=== PATIENT | female | born 1965 | race Caucasian/White ===

== ENCOUNTER 2022-12-26 09:50 | Outpatient (CLI) | payer OTHER, SELFPAY | END 2022-12-26 09:51 | disposition home or self-care (01) | PROVIDERS: PCP Family Medicine; Visit Provider Family Medicine | DX: Z00.00 Encounter for general adult medical examination without abnormal findings (principal); R53.83 Other fatigue; E55.9 Vitamin D deficiency, unspecified | CPT/HCPCS: 80048; 80061; 80076; 82306; 82728; 84443; 85025 ==

== ENCOUNTER 2023-01-04 16:17 | Outpatient (RCR) | payer OTHER, SELFPAY | END 2023-01-22 10:27 | disposition home or self-care (01) | PROVIDERS: PCP Family Medicine; Visit Provider Physician Assistant | DX: M17.12 Unilateral primary osteoarthritis, left knee (principal); Z96.652 Presence of left artificial knee joint; M25.562 Pain in left knee; M25.662 Stiffness of left knee, not elsewhere classified; Z51.89 Encounter for other specified aftercare | CPT/HCPCS: 97110; 97162 ==

== ENCOUNTER 2023-01-23 08:19 | Day surgery (SDC) | payer OTHER, SELFPAY ==
[2023-01-23] VITALS (24 sets, daily range): BP systolic 96–175; BP diastolic 67–111; PULSE 57–95; RESP 16–18; TEMP 35.2–36.9; O2SAT 94–100; BMI 48.9
[2023-01-23] MEDS: CELECOXIB 200 MG CAPSULE PO (08:40)
[2023-01-23] MEDS: OXYCODONE (CR) 10 MG TAB.ER.12H PO (08:40)
[2023-01-23] MEDS: LACTATED RINGERS 1000 ML 1,000 ML 100 ML IV ×2 (08:50→11:25)
[2023-01-23] MEDS: SODIUM CHLORIDE 0.9 % (FLUSH) 10 ML SYRINGE IVF (08:50)
[2023-01-23] MEDS: MIDAZOLAM HCL 1 MG/ML inj IVP (09:12)
[2023-01-23] MEDS: fentaNYL 100 MCG/2 ML inj IVP (09:12)
--- NOTE | 2023-01-23 09:22 | SUR.PREOP ---
TIME?OUT:?9310 PT/Dimitri TADEO RN/Willian HARRIS MDA?VERIFICATION?OF?SURGICAL?SITE,?PROCEDURE,?AND?CONSENT OBTAINED?PRIOR?TO?INVASIVE?PROCEDURE.
--- NOTE | 2023-01-23 09:30 | W.ANESCHARGE ---
Anesthesia Charges Start Date/Time Anesthesia Start Date: 01/23/23 Anesthesia Start Time: 09:29 Stop Date/Time Anesthesia Stop Date: 01/23/23 Anesthesia Stop Time: 13:12
--- NOTE | 2023-01-23 09:30 | W.PM.NB ---
Nerve Block Nerve Block Time Seen by Provider: 09:12 Date Seen: 01/23/23 Type of block requested by surgeon for post-operative analgesia: adductor canal Side: left Time out performed: Yes Verification of patient name: Yes Verification of date of : Yes Site marking: site marked Name of person performing procedure: Sree Continuous monitoring Was continuous monitoring of O2 sat, B/P, electronic device monitor, recorded every 15 minutes?: Yes Procedure Checklist: sterile prep, needles and gloves Ultrasound guided. Images saved: Yes Medications given in 5ml increments after negative aspiration: Ropivicaine %: 0.5 mL: 20 Needle gauge: 20 Decadron (mg): 10 Precedex (mcg): 25 Patient tolerated procedure well: Yes Additional comments: Needle noted adjacent to nerve Block Charges Block Charge (with Pro Fee): Femoral Nerve Use of Ultrasound Machine for Block: Yes- US Guidance/pain block
--- NOTE | 2023-01-23 09:30 | W.PM.NB ---
Nerve Block Nerve Block Time Seen by Provider: 09:12 Date Seen: 01/23/23 Type of block requested by surgeon for post-operative analgesia: geniculars Side: left Time out performed: Yes Verification of patient name: Yes Verification of date of : Yes Site marking: site marked Name of person performing procedure: Sree Continuous monitoring Was continuous monitoring of O2 sat, B/P, database security administrator, recorded every 15 minutes?: Yes Procedure Checklist: sterile prep, needles and gloves Medications given in 5ml increments after negative aspiration: Ropivicaine %: 0.5 mL: 9 Needle gauge: 25 Patient tolerated procedure well: Yes Block Charges Block Charge (with Pro Fee): Genicular Nerve Block Use of Ultrasound Machine for Block: No
[2023-01-23] MEDS: CEFAZOLIN 2 GM INJ IVP (09:50)
[2023-01-23] MEDS: TRANEXAMIC ACID 100 MG/ML INJ 1000 MG IV (09:55)
--- NOTE | 2023-01-23 12:18 | CRLHL7_ITS ---
For Patients: As a result of the Cures Act, medical imaging exams and procedure reports are released immediately into your electronic medical record. You may view this report before your referring provider. If you have questions, please contact your health care provider. Indication: POSTOP TKA Technique: Two views left knee Findings/Impression: Hardware from a long-stemmed left total knee arthroplasty is in satisfactory position. Bone alignment is normal. No sign of acute fracture. Postop changes are within normal limits. Dictated by Yury Pastrana MD @ 01/23/2023 1:33:30 PM (Electronically Signed)
--- NOTE | 2023-01-23 12:20 | PM.ORPRC ---
Procedure Note Date of procedure: 01/23/23 Procedure: PREOPERATIVE DIAGNOSIS: End-stage (grade 4) Left knee osteoarthritis POSTOPERATIVE DIAGNOSIS: End-stage (grade 4) Left knee osteoarthritis NAME OF OPERATION: Left total knee arthroplasty SURGEON: Bonilla Morales MD SENIOR ENVIRONMENTAL TECHNICIAN: Ana Varner PA-C, NAYELI Candelario ANESTHESIA: Spinal ESTIMATED BLOOD LOSS: 0 mL COMPLICATIONS: None SPECIMENS: None DRAINS: None PREOPERATIVE ANTIBIOTICS: Ancef 3 grams, antibiotic impregnated cement IMPLANTS: 1. J&J Attune revision CRS # 7 posterior stabilized femur, 14 mm x 80 mm cemented stem 2. #5 rotating platform tibia, 29 mm sleeve, 14 mm x 60 mm ingrowth stem 3. # 7 posterior stabilized, 12 mm rotating platform polyethylene 4. 38 patella INDICATIONS: The patient is a 57-year-old who complains of severe, unrelenting bilateral knee pain left greater than right secondary to end-stage tricompartmental osteoarthritis. She has exhausted non operative treatment. Total knee arthroplasty was offered. The risks, benefits and expected outcomes were discussed in detail. These included but were not limited to: Infection, bleeding, injury to blood vessel or nerve, venous thromboembolism. All questions were answered to their satisfaction. She understands she is higher risk for postoperative complication given her high BMI. Use of an assistant to the president was necessary throughout the case for patient positioning and safety, soft tissue retraction, and closure. A modifier 22 should be added to this case. The patient's weight of 125 kg with a BMI of 49 kg/meter squared made exposure difficult. Additionally, given the severity of the disease and marked amount of stiffness exposure was even more difficult. Given the amount of bone loss and deformity, revision components were used to obtain good fixation and stability. These factors more than doubled the time typically required to complete the case. PROCEDURE: Spinal anesthesia was administered. The patient was placed supine on the operating table. The assistant to the president made sure the patient was positioned appropriately. The lower extremity was prepped and draped in the usual sterile fashion. The limb was exsanguinated with the Jose bandage. The pneumatic tourniquet was inflated to 300 mmHg. A standard anterior incision was utilized with the knee in flexion. Subcutaneous dissection was sharply taken to the extensor mechanism. Full-thickness medial and lateral flaps were elevated. The assistant to the president retracted the soft tissues and protected them throughout the case. A standard medial parapatellar approach was made. The patella was everted. Because of the above factors, exposure was difficult. Marginal osteophytes were debrided with the rongeur. The drill was used to penetrate the femoral canal. The canal was aspirated and irrigated with pulse lavage. The intramedullary femoral guide was placed for a 5 degree valgus cut, removing 12 mm off the distal femur. The saw was used to make the cut. Whitesides line and the trans epicondylar axis were marked. The femoral sizing guide was placed. Pins were placed for posterior referencing. The 4 in 1 cutting guide was pinned onto the distal femur. The anterior, posterior and chamfer cuts were made. The trial femur was placed. This was an excellent fit. The box cuts were made. The drills were used for the femoral stem. The trial stemmed femoral component was placed and was an excellent fit. Attention was then turned to the tibia. The extramedullary tibial guide was placed for a neutral varus valgus cut with 5? of posterior slope removing 1 mm off the most deficient medial tibial surface. This was marked in the slot. However, the cut was made with the saw on top of the jig, adding back some bone. The canal was entered with the canal finer. The tibia was reamed by hand to 15 mm with excellent cortical chatter. Marginal osteophytes were resected from the tibia. The 29 mm broach for the sleeve was placed. This had excellent purchase. We freshened the proximal tibial cut with the oscillating saw on top of the broach. The # 5 Tray appears to be the best fit. The trial stemmed tibia was placed. This was a nice fit. Rotation was set. The trial femur and trial polyethylene were placed. The knee was nicely balanced in both flexion and extension. These components were removed and taken to the back table to reproduce with the real implants. Attention was then turned to the patella. The lobster claw a resection guide set to 7.5 mm was used. The saw was used make the cut. Patellar bone quality is quite poor. The drill guide was placed and the lugs were drilled. The trial was placed and was an excellent fit. Cancellous surfaces were irrigated with pulse lavage, then thoroughly dried, by the assistant to the president. Components were assembled on the back table. We cemented the tibial component, then the femoral component. We placed the 10 mm trial polyethylene onto the tibial tray. The knee was brought into full extension. We then cemented the patellar component. Excessive cement was removed. The cement was allowed to harden. We trialed the 12 mm poly and this shows the knee to be nicely balanced in both flexion and extension, stable to varus/valgus stress. Therefore, we placed the 12 mm poly on the tibia and reduced it under the femur. The knee was taken through a range of motion and was found to be nicely balanced in both flexion and extension. The patella tracks centrally. The assistant to the president did a three minute dilute Betadine solution soak. The assistant to the president irrigated the wound with 3 liters of normal saline via pulse lavage. The assistant to the president reapproximated the extensor mechanism with #1 Vicryl in an interrupted [id number] fashion. The assistant to the president then ran the extensor mechanism with a #1 PDO Stratafix. The assistant to the president closed the subcutaneous tissues with a 3-0 Stratafix and the skin with a running 3-0 Stratafix in a subcuticular fashion. Glue was used to seal the skin. The assistant to the president placed a dry dressing, LINA stocking, and Polar Care. Sponge and needle counts were correct x2. The patient tolerated the procedure well. There were no apparent complications. They were carefully transferred to the hospital bed and taken to the postanesthesia care unit in satisfactory condition. PLAN: The patient will be mobilized with physical therapy. Aspirin will be used for DVT prophylaxis. They will be discharged to home once medically appropriate.
--- NOTE | 2023-01-23 13:17 | W.ANESCHARGE ---
Anesthesia Charges Start Date/Time Anesthesia Start Date: 01/23/23 Anesthesia Start Time: 09:29 Stop Date/Time Anesthesia Stop Date: 01/23/23 Anesthesia Stop Time: 13:12
[2023-01-23] MEDS: HYDROmorphone 0.5 mg/0.5 ml inj IVP ×2 (15:27→17:12)
[2023-01-23] MEDS: OXYCODONE 5 MG TABLET PO ×4 (15:27→22:59)
--- NOTE | 2023-01-23 16:29 | P.IMCN_ITS ---
Date of Consult Consult date: 01/23/23 Requesting Physician: Orthopedics Primary Care Provider: Yury Post MD Consult Narrative Reason for consult: Management of medical problems following surgery Narrative: Izzy Rocha is a 57 year old female admitted for left total knee arthroplasty. Procedures performed today by Dr. Morales. No operative complications. Postoperatively she is doing well. Pain is manageable. She has had no nausea. Patient reports in addition to her knee pain she also has chronic low back pain. She is also anticipating having her other knee replaced after she has recovered from the surgery No previous problems with anesthesia, bleeding or clotting. Review of Systems Narrative: No recent illness or injury. Patient lives in [place] with her and his son. She lives at home with no steps. She reports no problems with anesthesia, bleeding or clotting. [facility] Medical History (Updated 01/23/23 @ 16:33 by Devon Costello MD) Severe obesity (BMI >= 40) ?E66.01 - Morbid (severe) obesity due to excess calories (ICD-10) Chronic neck and back pain ?M54.2 - Cervicalgia (ICD-10) ?M54.9 - Dorsalgia, unspecified (ICD-10) ?G89.29 - Other chronic pain (ICD-10) Bilateral carpal tunnel syndrome ?G56.03 - Carpal tunnel syndrome, bilateral upper limbs (ICD-10) Bilateral primary osteoarthritis of knee ?M17.0 - Bilateral primary osteoarthritis of knee (ICD-10) Chronic pain syndrome ?G89.4 - Chronic pain syndrome (ICD-10) Surgical History History of lumpectomy of right breast ?Z98.890 - Other specified postprocedural states (ICD-10) Family History Father Diabetes AGUILA (nonalcoholic steatohepatitis) Mother High blood pressure Social History Narrative: , correction nurse, non-smoker Smoking Status: Former smoker Do you use any of these nicotine containing products: None How often do you have a drink containing alcohol: 2-3 times a week Alcohol type: hard liquor How many standard drinks containing alcohol do you have on a typical day: 5 or 6 How often do you have six or more drinks on one occasion: Weekly AUDIT-C Alcohol total score: 8 Non-prescribed substance use: denies use Caffeine: Yes (Celsius, one a day) Little interest or pleasure in doing things: more than half the days Feeling down, depressed, or hopeless: more than half the days Meds Home Medications and Allergies Home Medications Medication Instructions Recorded Confirmed Type acetaminophen 500 mg capsule 1,000 mg PO Q6H PRN 12/26/22 01/23/23 History cholecalciferol (vitamin D3) 25 25 mcg PO BID 12/26/22 01/23/23 History mcg (1,000 unit) capsule diphenhydramine HCl 25 mg capsule 50 mg PO QHS PRN 12/26/22 01/23/23 History (Benadryl) Allergies Allergy/AdvReac Type Severity Reaction Status Date / Time No Known Drug Allergies Allergy Verified 01/09/23 09:26 Exam Narrative: Exam Narrative: She is alert and appears in no distress. She is oriented to her circumstances and gives her own history. Oropharynx is normal. Small airway. Respirations are clear to auscultation. Cardiovascular: S1, S2, regular rate and rhythm. No murmur gallop or rub. Abdomen: Bowel sounds active. Abdomen is soft without tenderness or mass. Extremities with intact pulses and sensation. Intact stre ngth in both feet and ankles. No edema. No rash Const: Vital Signs, click to edit/add: Vital Signs - 24 hr 01/23/23 09:03 01/23/23 09:10 01/23/23 09:15 Temperature 97.8 F Pulse Rate 71 68 72 Respiratory Rate 18 18 18 Blood Pressure 129/104 H 116/82 129/90 H Pulse Oximetry 95 98 96 Oxygen Delivery Me thod Room Air Nasal Cannula Nasal Cannula Oxygen Flow Rate 2 2 01/23/23 13:11 01/23/23 13:12 01/23/23 13:15 Temperature Pulse Rate 64 61 65 Respiratory Rate Blood Pressure 102/67 Pulse Oximetry 99 99 100 Oxygen Delivery Me thod Room Air Oxygen Flow Rate 01/23/23 13:17 01/23/23 13:22 01/23/23 13:27 Temperature Pulse Rate 65 64 63 Respiratory Rate Blood Pressure 96/71 110/91 H 113/74 Pulse Oximetry 96 95 96 Oxygen Delivery Me thod Room Air Oxygen Flow Rate 01/23/23 13:30 01/23/23 13:34 01/23/23 13:42 Temperature Pulse Rate 63 60 60 Respiratory Rate 18 18 Blood Pressure 122/85 124/81 Pulse Oximetry 97 97 98 Oxygen Delivery Me thod Room Air Room Air Oxygen Flow Rate 01/23/23 13:46 Temperature Pulse Rate 57 L Respiratory Rate 18 Blood Pressure 133/87 Pulse Oximetry 98 Oxygen Delivery Me thod Room Air Oxygen Flow Rate Documenting provider has reviewed patient's vital signs: yes Assessment and Plan Assessment and plan (1) Status post left knee replacement: Status: Acute (2) Chronic neck and back pain: Status: Acute (3) Bilateral primary osteoarthritis of knee: Problem comment: Severe end-stage bilateral Status: Acute (4) Chronic pain syndrome: Status: Acute (5) Severe obesity (BMI >= 40): Status: Acute Plan Anticipate routine pain management and routine therapy. Patient will likely have ongoing pain due to her other knee and her low back problems. On that basis I am going to continue her Naprosyn unless she develops complications with Naprosyn and aspirin. Total time spent is 40 minutes, 25 minutes in coordination of care discussing with patient and other providers ongoing evaluation management of postoperative care.
[2023-01-23] MEDS: LACTATED RINGERS 1000 ML 1,000 ML 75 ML IV (17:59)
--- NOTE | 2023-01-23 18:49 | PC.NURSE ---
Pt A&O. A1 w/ walker and gait belt. Denies n/v. Tolerating regular diet. After PT pt rating pain 13/10, PRN Dilaudid and Oxycodone given with minimal relief at first, after another dose of each pt rating pain 5/10. Hypertensive, notified, no change. Dressing to left hip c/d/i.
[2023-01-23] MEDS: ACETAMINOPHEN 500 MG TABLET 1000 MG PO (20:01)
[2023-01-23] MEDS: SENNOSIDES 1 TAB TABLET 2 TAB PO (21:16)
[2023-01-23] MEDS: PREGABALIN 75 MG CAPSULE 150 MG PO (21:17)
[2023-01-23] MEDS: ASPIRIN 81 MG TABLET EC PO (21:17)
[2023-01-24] MEDS: OXYCODONE 5 MG TABLET PO ×4 (01:44→10:07)
[2023-01-24] MEDS: ACETAMINOPHEN 500 MG TABLET 1000 MG PO ×2 (02:20→07:48)
[2023-01-24 03:00] VITALS: BP 152/90; PULSE 76; RESP 16; TEMP 36.7; O2SAT 96
--- NOTE | 2023-01-24 06:06 | PC.NURSE ---
End of shift note: Pt alert and oriented, pleasant and conversational. Pt c/o severe 9-10/10 pain intermit throughout shift, requesting PRN pain medication. PRN Oxycodone 10mg admin, pt stated pain improved to a 5-6/10 after admin but pain relief not lasting per pt. Painful with movement, tearful intermit during?shift. Pt also received her scheduled Lyrica. Cryo cuff in place to L knee, dressing to knee CDI. CMS intact. Up w/ SBA and walker, moving very well, up to bathroom and amb in hallway. Denies nausea. Con?t pulse ox in place, vitals stable, on RA, BP continued to be slightly elevated diastolic ranging 90-low 100s, improved throughout shift. 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 Tolerating diet, drinking adequate fluids, voiding w/o issue. Received 2nd of 3 Ancef doses, IV saline locked. Has call light within reach and uses appropriately.??
[2023-01-24 07:07] LABS: Basophils Percent Auto 0.1 % (0.0-3.0); Hematocrit 36.6 % (33.0-51.0); Hemoglobin* 12.3 gm/dL (12.0-16.0); Immature Granulocytes Pct Auto 0.9 %; Lymphocytes Percent Auto 10.6 % (20-44); Mean Corpuscular HGB Conc 34 gm/dL (32-36); Mean Corpuscular Hemoglobin 31 pg (26-34); Mean Corpuscular Volume 93 fL (80-100); Monocytes Percent Auto 8.7 % (0.0-11.0); Neutrophils Percent Auto 79.7 % (42.0-72.0); Platelet Count* 247 K/uL (140-440); RDW Coefficient of Variation % 12.1 % (11.5-15.5); Red Blood Count 3.94 m/uL (4.00-5.20); White Blood Count* 17.17 K/uL (4.50-11.00)
[2023-01-24 07:08] LABS: Slide Review Reflex No
[2023-01-24 07:18] LABS: Potassium* 4.3 mmol/L (3.6-5.1); Sodium* 138 mmol/L (135-149)
[2023-01-24 07:21] LABS: Blood Urea Nitrogen* 19 mg/dL (7-30); Creatinine* 0.5 mg/dL (0.5-1.5); Est. Creatinine Clearance* 101.45; Estimated Glomerular Filt Rate 109 ml/min
[2023-01-24 07:29] LABS: INR 1.08 (0.91-1.10); Prothrombin Time 14.7 Seconds
[2023-01-24 07:30] VITALS: BP 145/85; PULSE 79; RESP 20; TEMP 36.8; O2SAT 98
[2023-01-24] MEDS: ASPIRIN 81 MG TABLET EC PO (08:58)
[2023-01-24] MEDS: SENNOSIDES 1 TAB TABLET 2 TAB PO (08:58)
[2023-01-24] MEDS: PREGABALIN 75 MG CAPSULE 150 MG PO (08:58)
--- NOTE | 2023-01-24 09:30 | PM.ORPN ---
Subjective Subjective Time Seen by Provider: 07:45 Date Seen: 01/24/23 Principal diagnosis: Status post left knee replacement 01/23/2023 Interval history: Izzy is comfortable at rest in the hospital bed this morning. She has into the hallway and into the restroom and has done well with that. She denies nausea and vomiting. Ortho Exam Narrative Exam Narrative: Alert and oriented x3. Patient is in no acute distress. Converses without labored breathing. Hearing is grossly intact. Ambulates with a walker. Examination of the left lower extremity shows mild effusion. Mild soft tissue edema about the left knee. Dressing is intact. No erythema or warmth or sign of infection. No ecchymosis. Able to straight leg raise. Quad strength 5/5. CMS is intact left lower extremity. Const Vital Signs, click to edit/add: Vital Signs - 24 hr 01/23/23 13:11 01/23/23 13:12 01/23/23 13:15 Temperature Pulse Rate 64 61 65 Pulse Rate [Pulse Oximeter] Respiratory Rate Blood Pressure 102/67 Blood Pressure [Left Arm] Blood Pressure [Right Arm] Pulse Oximetry 99 99 100 Oxygen Delivery Method Room Air 01/23/23 13:17 01/23/23 13:22 01/23/23 13:27 Temperature Pulse Rate 65 64 63 Pulse Rate [Pulse Oximeter] Respiratory Rate Blood Pressure 96/71 110/91 H 113/74 Blood Pressure [Left Arm] Blood Pressure [Right Arm] Pulse Oximetry 96 95 96 Oxygen Delivery Method Room Air 01/23/23 13:30 01/23/23 13:34 01/23/23 13:42 Temperature Pulse Rate 63 60 60 Pulse Rate [Pulse Oximeter] Respiratory Rate 18 18 Blood Pressure 122/85 124/81 Blood Pressure [Left Arm] Blood Pressure [Right Arm] Pulse Oximetry 97 97 98 Oxygen Delivery Method Room Air Room Air 01/23/23 13:46 01/23/23 14:00 01/23/23 14:00 Temperature 95.5 F L Pulse Rate 57 L 57 L Pulse Rate [Pulse Oximeter] Respiratory Rate 18 16 Blood Pressure 133/87 Blood Pressure [Left Arm] 149/88 H Blood Pressure [Right Arm] Pulse Oximetry 98 94 Oxygen Delivery Method Room Air Room Air 01/23/23 14:15 01/23/23 15:00 01/23/23 15:30 Temperature 95.3 F L 97.4 F L Pulse Rate Pulse Rate [Pulse Oximeter] 61 72 76 Respiratory Rate 16 16 16 Blood Pressure Blood Pressure [Left Arm] Blood Pressure [Right Arm] 175/91 H 138/92 H 163/107 H Pulse Oximetry 98 96 98 Oxygen Delivery Method Room Air Room Air Room Air 01/23/23 16:00 01/23/23 17:00 01/23/23 18:00 Temperature 97.6 F 97.6 F Pulse Rate Pulse Rate [Pulse Oximeter] 70 82 89 Respiratory Rate 16 16 16 Blood Pressure Blood Pressure [Left Arm] Blood Pressure [Right Arm] 163/107 H 155/87 H 159/111 H Pulse Oximetry 98 98 100 Oxygen Delivery Method Room Air Room Air Room Air 01/23/23 19:00 01/23/23 20:00 01/23/23 21:00 Temperature 98.0 F 98.5 F 97.9 F Pulse Rate Pulse Rate [Pulse Oximeter] 95 88 84 Respiratory Rate 16 16 16 Blood Pressure Blood Pressure [Left Arm] 138/106 H Blood Pressure [Right Arm] 155/104 H Pulse Oximetry 95 96 Oxygen Delivery Method Room Air Room Air Room Air 01/23/23 23:00 01/23/23 23:00 01/23/23 23:00 Temperature 98.0 F Pulse Rate Pulse Rate [Pulse Oximeter] 84 95 Respiratory Rate 16 16 Blood Pressure Blood Pressure [Left Arm] Blood Pressure [Right Arm] 144/91 H Pulse Oximetry 95 95 Oxygen Delivery Method Room Air 01/24/23 03:00 Temperature 98.1 F Pulse Rate Pulse Rate [Pulse Oximeter] 76 Respiratory Rate 16 Blood Pressure Blood Pressure [Left Arm] 152/90 H Blood Pressure [Right Arm] Pulse Oximetry 96 Oxygen Delivery Method Room Air Assessment and Plan Assessment and plan (1) Status post left knee replacement: Status: Acute Assessment and Plan: Plan for discharge is today to home if they meet discharge criteria. DVT prophylaxis includes aspirin 81 mg twice daily x1 month, Dereje stockings x1 month may remove for 1 hr per day, frequent ambulation Remove dressing in 1 week. Observe wound and phone Orthopedics with any questions or concerns Return to clinic in 1 week for a wound check Return to clinic in [address] Morales Minimize narcotic use. Wean off and discontinue soon as possible. Activities as tolerated. No strenuous activity. Outpatient physical therapy as scheduled. Ice and elevate the operative extremity. No restriction on ice. (2) Chronic neck and back pain: Status: Acute (3) Chronic pain syndrome: Status: Acute (4) Severe obesity (BMI >= 40): Status: Acute
[2023-01-24 10:02] VITALS: BP 133/87; PULSE 57; RESP 16; TEMP 36.7
--- NOTE | 2023-01-24 11:09 | PC.SOCIAL ---
Per therapy, pt is moving around well. Pt has assistance at home from pt's significant other. Pt's bathroom and bedroom are all on one floor. There are no identified needs for social work.
--- NOTE | 2023-01-24 11:51 | PC.NURSE ---
Please see eMar for pain management meds and scheduled medications. Rested patch for anxiety. Cryocuff. Pt eval by Danica mena PA. Pt and sig other Luna verbalized understanding of d/c diagnosis, pain management plan, new prescriptions, home meds, f/up appt and sx to report urgently to physician. Discharged via w/c at 1100 am w/ all personal belongings with Luna as transportation.
== END 2023-01-24 11:05 | disposition home or self-care (01) ==
LOC: OR 08:20 → MEDSURG 08:23
PROVIDERS: PCP Family Medicine; Visit Provider Orthopaedic Surgery
PROC: (CPT 27447; principal; 2023-01-23 09:15)
DX: M17.0 Bilateral primary osteoarthritis of knee (principal); G89.18 Other acute postprocedural pain; Z68.42 Body mass index [BMI] 45.0-49.9, adult; E66.01 Morbid (severe) obesity due to excess calories; G89.29 Other chronic pain; M54.50 Low back pain, unspecified; M54.2 Cervicalgia
CPT/HCPCS: 27447; 01402; 36415; 64447; 64454; 73560; 76942; 82565; 84132; 84295; 84520; 85025; 85610; 94761; 97110; 97116; 97162; 97165; 97530; 97535; A9270; C1776; J0690; J1100; J1170; J2250; J2370; J2405; J2704; J2795; J3010; J7120

== ENCOUNTER 2024-02-04 10:57 | Outpatient (CLI) | payer OTHER, SELFPAY ==
--- OUTSIDE RECORDS SUMMARY | 2024-02-04 11:03 | XMS_ITS | Clinical Summary ---
Author Name Unknown Organization [facility] Address [address] [place] [address] Care Team Providers Care Bottom Bleacher Name Role Phone Unavailable Primary Care Provider Unavailabl e Source Comments Patient records contain information from all sites at [facility]. For routine questions regarding patient records, call [phone] during business hours, M-F 8:00 AM - 5:00 PM Central Time. Record requests for emergency care only can be directed to [phone] at any time.[facility] Allergies No known active allergies Medications Medication Sig Dispensed Refills Start Date End Date Status multivitamin capsule Take 1 capsule by mouth. 11/21/2013 Active cholecalciferol, vitamin D3, (cholecalciferol) 1,000 Unit tablet Take 1,000 Units by mouth daily. Active diphenhydrAMINE (BENADRYL) 50 mg capsule Take 50 mg by mouth every 6 (six) hours as needed. Active aspirin [address] tablet Take 81 mg by mouth 2 (two) times a day. Active famotidine (PEPCID) 20 mg tablet Take 20 mg by mouth 2 (two) times a day. Active acetaminophen (TYLENOL) 500 mg tablet Take 500 mg by mouth every 6 (six) hours as needed for pain. Active Active Problems Problem Noted Date Diagnosed Date Obesity Unspecified 06/01/2020 Frequency Urinary 06/01/2020 Menstrual Irregularity 06/01/2020 Menopause 06/01/2020 Social History Tobacco Use Types Packs/Day Years Used Date Smoking Tobacco: Some Days Smokeless Tobacco: Never Tobacco Cessation:Ready to Q uit: No; Counseling Given: Yes Nutrition Answer Date Recorded Nutrition: EVOO Fat Source Unknown 11/25 Nutrition: Servings of Fruits/Vegetables per Day Not on file 11/25/2020 Dental Answer Date Recorded Dental: Regular Dentist Unknown 11/26/19 Sex and Gender Information Value Date Recorded Sex Assigned at Not on file Gender Identity Not on file Sexual Orientation Not on file Last Filed Vital Signs Vital Sign Reading Time Taken Comments Blood Pressure 144/88 06/01/2020 3:38 PM CDT Pulse - - Temperature - - Respiratory Rate - - Oxygen Saturation - - Inhaled Oxygen Concentration - - Weight 118 kg (259 lb 0.7 oz) 06/01/2020 3:38 PM CDT Height - - Body Mass Index - - Plan of Treatment Health Maintenance Due Date Last Done Comments CT Colonography 1964 Cologuard 1964 Colonoscopy 1965 Colorectal Cancer Screening 1964 FIT 1964 HIV Screening 1965 Hepatitis C Screening 1964 Lipid (Cholesterol) Screening 1964 Pneumococcal vaccine (0-64 y ears) (1 of 2 - PCV) 01/26/1970 Hepatitis B Vaccines (2 of 3 - 19+ 3-dose series) 06/11/2015 05/14/2015 Tobacco Cessation counseling 06/01/2021 06/01/2020 Fasting Glucose for Diabetes Screening 01/25/2023 01/26/2020 Zoster Vaccines (2 of 2) 02/20/2023 12/26/2022 COVID-19 Vaccine (3 - 2022-2 4 season) 2023 05/31/2021, 05/09/2021 Influenza Vaccine (#1) 2023 6, 07/09/2016, 07/17/2015, Additional history exists Mammogram 07/26/2023 07/26/2022, 0809/2014, 11/28/2013, Additional history exists Depression Screening (Annual PHQ-2) 09/24/2023 Cervical Cancer Screening 06/01/2025 06/01/2020, 04/2020 DTaP,Tdap,and Td Vaccines (3 - Td or Tdap) 12/26/2032 12/26/2022, 04/17/2011 Procedures Procedure Name Priority Date/Time Associated Diagnosis Comments BI BREAST DIAGNOSTIC BILATERAL WITH TOMOSYNTHESIS RAD - Routine (most inpatients and all outpatients) 07/26/2022 2:23 PM CDT Lump In The Left Breast Unspecified Quadrant THINPREP W/HPV CO-TEST SCREEN Routine 06/01/2020 4:25 PM CDT Menstrual Irregularity Preventive Gynecological Exam EXTI COMPREHENSIVE METABOLIC PANEL, S/P Routine 01/26/2020 11:27 AM CDT from Last 3 Months or Most Recently Relevant to Health Maintenance Results * BI Breast Diagnostic Bilateral with Tomosynthesis (07/26/2022 2:23 PM CDT) Anatomical Region Laterality Modality Breast, Breast Imaging RST L OS, Breast Imaging ARZ LOS, Breast Imaging FLA LOS Bilateral Mammography 07/26/2022 3:31 PM CDT Impressions 07/26/2022 3:43 PM CDT 1. ??Left breast lump corresponds with 0.6 cm benign cyst. 2. ??No mammographic or sonographic findings of malignancy. RECOMMENDATION: ??Annual Screening Mammogram Patient was given business card for breast surgeon in case she wants the cyst aspirated for symptomatic reasons. She indicated she would not pursue aspiration at this time, since this cyst is less bothersome than a few weeks ago. There is nothing suspicious requiring biopsy. ASSESSMENT: ??BI-RADS: 2: Benign. Narrative 07/26/2022 3:43 PM CDT EXAM: ??BI BREAST DIAGNOSTIC BILATERAL WITH TOMOSYNTHESIS, BI ULTRASOUND BREAST FOCUSED BILATERAL INDICATION: ??Palpable lump COMPARISON: ??Prior exam(s) were available and reviewed for comparison. DENSITY: ??b. There are scattered areas of fibroglandular density. FINDINGS: ??Imaging today included bilateral mammograms and ultrasounds. Left breast lump at 1:00 and 10 cm from nipple corresponds with 0.6 cm benign cyst located 0.2 cm deep to the dermis. Right breast at 10:00 and 5 cm from nipple has 0.4 cm benign fibrocystic changes seen on both mammogram and ultrasound. No solid suspicious masses. Negative for malignancy. No suspicious lymph nodes in bilateral axilla. I discussed findings with patient. She was satisfied. Procedure Note Yury Henderson M.D. - 07/26/2022 EXAM: BI BREAST DIAGNOSTIC BILATERAL WITH TOMOSYNTHESIS, BI ULTRASOUNDBREAST FOCUSED BILATERAL INDICATION: Palpable lump COMPARISON: Prior exam(s) were available and reviewed for comparison. DENSITY: b. There are scattered areas of fibroglandular density. FINDINGS: Imaging today included bilateral mammograms and ultrasounds. Left breast lump at 1:00 and 10 cm from nipple corresponds with 0.6 cmbenign cyst located 0.2 cm deep to the dermis. Right breast at 10:00 and 5 cm from nipple has 0.4 cm benign fibrocysticchanges seen on both mammogram and ultrasound. No solid suspicious masses. Negative for malignancy. No suspicious lymphnodes in bilateral axilla. I discussed findings with patient. She was satisfied. IMPRESSION: 1. Left breast lump corresponds with 0.6 cm benign cyst. 2. No mammographic or sonographic findings of malignancy. RECOMMENDATION: Annual Screening Mammogram Patient was given business card for breast surgeon in case she wants thecyst aspirated for symptomatic reasons. She indicated she would not pursue aspiration at thistime, since this cyst is less bothersome than a few weeks ago. There is nothing suspiciousrequiring biopsy. ASSESSMENT: BI-RADS: 2: Benign. Maciej Morgan M.D. IMG BI PROCEDURES * ThinPrep w/HPV Co-Test Screen (06/01/2020 4:25 PM CDT) 06/04/2020 10:39 AM [facility] Report electronically signed by MERLE Thomas(ASCP) I verify that I have examined all relevant slides/materials for the specimen(s) and rendered or confirmed the diagnosis. 06/04/2020 10:39 AM CDT [facility] Gross Description Received specimen in a ThinPrep vial. 06/04/2020 10:39 AM CDT [facility] Pap Test Source Cervical/Endocervi sonu 06/04/2020 10:39 AM CDT [facility] Clinical History Post menopausal bleeding 06/04/2020 10:39 AM CDT [facility] Menstrual Status(LMP, PM, ) PM 06/04/2020 10:39 AM CDT [facility] Hormone Therapy/Contracep tives none 06/04/2020 10:39 AM CDT [facility] Interpretation Cervical/Endocervi sonu ??(ThinPrep): Satisfactory for Evaluation Negative for Intraepithelial Lesion or Malignancy High Risk HPV: ??Negative Negative for High Risk HPV by nucleic acid amplification. The following High Risk HPV types were not detected: 16, 18, 31, 33, 35, 39, 45, 51, 52, 56, 58, 59, 66, and 68. 06/04/2020 10:39 AM CDT [facility] Varies (Cervix/Endocerv ix) 06/01/2020 4:25 PM CDT 06/02/2020 7:16 AM CDT Devon Garner Jr., M.D. LAB PAP PATHDX ORDERABLES [facility] [address] [place] [address], [facility] [address] [place] [address] from Last 3 Months or Most Recently Relevant to Health Maintenance [address] [place] [id number]
--- OUTSIDE RECORDS SUMMARY | 2024-02-04 11:03 | XMS_ITS | Referral Summary ---
Author Name Unknown Organization [facility] Address [address] [place] [address] Care Team Providers Care Mortgage Assistant Name Role Phone Unavailable Primary Care Provider Unavailabl e Source Comments Patient records contain information from all sites at [facility]. For routine questions regarding patient records, call [phone] during business hours, M-F 8:00 AM - 5:00 PM Central Time. Record requests for emergency care only can be directed to [phone] at any time.[facility] Allergies No known active allergies Medications Medication [...] Date Recorded Dental: Regular Dentist Unknown 11/26/19 21 Sex and Gender Information Value Date Recorded [...] Mass Index - - Plan of Treatment Not on file Procedures Procedure Name Priority Date/Time Associated Diagnosis [...] (06/01/2020 4:25 PM CDT) 06/04/2020 10:39 AM CDT [facility] Report electronically signed by MERLE Thomas(ASCP) I verify that I have examined all relevant slides/materials for the specimen(s) and rendered or confirmed the diagnosis. 06/04/2020 10:39 AM CDT [facility] Gross Description Received specimen in a ThinPrep vial. 06/04/2020 10:39 AM CDT [facility] Pap Test Source Cervical/Endocervi sonu 06/04/2020 10:39 AM CDT [facility] Clinical History Post menopausal bleeding 06/04/2020 10:39 AM CDT [facility] Menstrual Status(LMP, PM, ) PM 06/04/2020 10:39 AM CDT [facility] Hormone Therapy/Contracep tives none 06/04/2020 10:39 AM [...] Garner Jr., M.D. LAB PAP PATHDX ORDERABLES [facility] [address] [place] [address], [place] [facility] [address] [place] [address] from Last 3 Months or Most Recently Relevant to Health Maintenance
--- OUTSIDE RECORDS SUMMARY | 2024-02-04 11:03 | XMS_ITS ---
Author Name Unknown Organization [facility] Address [address] [place] [address] Care Team Providers Care Barrel Ribs Solderer Name Role Phone Unavailable Unavailable Unavailable Surgery Details Not on file Complications Check Surgery Details section. Procedure Estimated Blood Loss Check Surgery Details section. Procedure Findings Check Surgery Details section. Procedure Specimens Taken Check Surgery Details section.
--- OUTSIDE RECORDS SUMMARY | 2024-02-04 11:03 | XMS_ITS | Clinical Summary ---
Author Name Unknown Organization [facility] Address [place], [place] [address] Care Team Providers Care Circular Knitter Helper Name Role Phone Pcp, No Primary Care Provider Unavailabl e Allergies No known active allergies Medications Medication Sig Dispensed Refills Start Date End Date Status omega-3 fatty acids-vitamin E (FISH OIL) 1,000 mg capIndications:Health maintenance examination Take by mouth. 0 11/21/2013 Active b complex vitamins (VITAMIN B COMPLEX) capsuleIndications:He alth maintenance examination Take 1 capsule by mouth once daily. 0 11/21/2013 Active multivitamin capsuleIndications:He alth maintenance examination Take 1 capsule by mouth once daily. 0 11/21/2013 Active bisacodyl (DULCOLAX, BISACODYL,) 5 mg tabletIndications:Abd ominal pain, LUQ (left upper quadrant) Take 1 tablet by mouth once daily if needed for Constipation. 12 tablet 1 02/02/2017 Active gabapentin (NEURONTIN) 600 mg tabletIndications:Leg pain, anterior, unspecified laterality TAKE ONE TABLET BY MOUTH THREE TIMES DAILY 270 tablet 1 06/10/2017 Active QUEtiapine (SEROQUEL) 25 mg tabletIndications:Rum ination TAKE ONE TABLET BY MOUTH ONCE DAILY AT BEDTIME 90 tablet 1 06/26/2017 Active oxyCODONE (ROXICODONE) 5 mg immediate release tabletIndications:Chr onic pain of both knees Take 1 tablet by mouth every 6 hours if needed for Pain 90 tablet 09/13/2017 Active ibuprofen (ADVIL; MOTRIN) 600 mg tabletIndications:Acu te left-sided low back pain without sciatica Take 1 Tablet (600 mg) by mouth every 6 hours if needed for Pain. Maximum of 3200 mg in 24 hours. 30 Tablet 04/22/2021 Active cyclobenzaprine (FLEXERIL) 10 mg tabletIndications:Acu te left-sided low back pain without sciatica Take 1 Tablet (10 mg) by mouth 3 times daily if needed for Muscle Spasm. 15 Tablet 04/22/2021 Active Active Problems Problem Noted Date Diagnosed Date Pain medication agreement 06/23/2016 Degenerative arthritis 09/07/2014 Bilateral chronic knee pain 09/07/2014 Resolved Problems Problem Noted Date Diagnosed Date Resolved Date DIABETES TYPE II WITHOUT COM PLICATIONS OR UNSPECIFIED 10/15/2003 04/17/2011 Overview: Patient has never been diagnosed as diabetic Immunizations Name Administration Dates Next Due AMB Influenza, IIV4 PF (=>6 mos Flulaval,Fluzone Fluarix)(Flu Clinic Only) 07/14/2016 Hepatitis A (Adult) 11/21/2013 Hepatitis B (Adult) 05/14/2015 Influenza, IIV3 (Age 6-35 mos) 06/02/2014 Tdap 04/17/2011 Family History Medical History Relation Name Comments Arthritis Father Diabetes Father Hyperlipidemia Father Hypertension Father Other Father AGUILA Arthritis Maternal Grandfather Heart Disease Maternal Grandfather Arthritis Maternal Grandmother Diabetes Maternal Grandmother Heart Disease Maternal Grandmother Arthritis Mother Hypertension Mother Arthritis Paternal Grandfather Arthritis Paternal Grandmother Cancer Paternal Grandmother panc. Diabetes Paternal Grandmother Cancer-breast No Family History Relation Name Status Comments Daughter Alive Father Alive Maternal Grandfather Maternal Grandmother Mother Alive Paternal Grandfather Paternal Grandmother Sister Alive Social History Tobacco Use Types Packs/Day Years Used Date Smoking Tobacco: Former Cigarettes Q uit: 09/24/2011 Smokeless Tobacco: Never Tobacco Cessation:Counseling Given: Yes Comments:2-3 cig per day Alcohol Use Standard Drinks/Week Comments Yes 0 (1 standard drink = 0.6 oz pur e alcohol) social Sex and Gender Information Value Date Recorded Sex Assigned at Not on file Gender Identity Not on file Sexual Orientation Not on file Obstetrics History Last Filed Vital Signs Vital Sign Reading Time Taken Comments Blood Pressure 170/126 04/22/2021 9:03 PM CDT Pulse 70 04/22/2021 9:03 PM CDT Temperature 36.8 ??C (98.3 ??F) 04/22/2021 8:22 PM CD T Respiratory Rate 18 04/22/2021 7:42 PM CDT Oxygen Saturation 97% 04/22/2021 9:03 PM CDT Inhaled Oxygen Concentration - - Weight 119.5 kg (263 lb 7.2 oz) 04/22/2021 7:41 PM CDT Height 161.9 cm (5' 3.75) 04/22/2021 7:41 PM CD T Body Mass Index 45.58 04/22/2021 7:41 PM CDT Plan of Treatment Health Maintenance Due Date Last Done Comments HIV for age 15-65 01/26/1979 Zoster (shingles) series for age 50+ (1 of 2) 01/26/2014 Mammogram for age 45-75 05/14/2016 05/14/20 15, 11/28/2013, 04/02/2012, Additional history exists Depression screening for age 12+ 10/08/2016 10/08/2015 Pap test for age 21-65 11/21/2016 4, 11/21/2013, 04/17/2011, Additional history exists BMI (ht and wt on same day) for age 18+ 02/02/2018 02/02/2017, 06/23/2016, 10/08/2015 Lipids for age 45-75 05/14/2020 05/14/2015, 11/21/2013, 01/15/2008, Additional history exists Tetanus booster 04/17/2021 04/17/2011, 04/17/2011 COVID-19 vaccine series (2022- season) 2023 Influenza for age 50-64 05/25/2024 07/14/2016 Colonoscopy through age 75 09/02/2025 09/02/2015, Tdap Completed 04/17/2011 Hepatitis C screening for age 18-79 Completed 05/14/2015, 05/14/2015 Pneumococcal series for age 6-64 Aged Out No longer eligible based on patient's age to complete this topic Goals Goal Patient Goal Type Associated Problems Recent Progress Patient-Stated? Author BLOOD PRESSURE-MAINTA INS BP LESS THAN 130/80 Blood Pressure No Jt Varghese MD BLOOD PRESSURE - MAINTAINS BP less than 140/90 Blood Pressure No Jt Varghese MD Procedures Procedure Name Priority Date/Time Associated Diagnosis Comments COLONOSCOPY SCREENING Routine 09/02/2015 Colon cancer screening ANTI HCV Routine 05/14/2015 11:47 AM CDT Need for hepatitis C screening test LIPID PANEL Routine 05/14/2015 11:47 AM CDT Lipid screening XR MAMMO BILAT SCREEN FFDM (IA) Routine 05/14/2015 9:26 AM CDT Other screening mammogram DENTAL CLAIMS PROCESSOR THIN PREP PAP SCREEN IMAGED Routine 11/21/2013 2:37 PM PAPETERIE TABLE ASSEMBLER Screening for cervical cancer from Last 3 Months or Most Recently Relevant to Health Maintenance Results * COLONOSCOPY SCREENING (09/02/2015) Jt Varghese MD GI PROCEDURE ORD * ANTI HCV (05/14/2015 11:47 AM CDT) HEPATITIS C ANTIBODY Non-Reacti ve Non-Reacti ve 05/14/2015 7:55 PM CDT [facility] Blood specimen (specimen) BLOOD SPECIMEN / Unknown Butterfly / Unknown 05/14/2015 11:47 AM CDT 05/14/2015 11:47 AM CDT Narrative [facility] - 05/14/2015 7:55 PM CDT Antibodies to HCV not detected; does not exclude the possibility of exposure to HCV. Jt Varghese MD SEND OUTS [facility] [address] [place] [address], * LIPID PANEL (05/14/2015 11:47 AM CDT) CHOLESTEROL,TOTAL 171 100 - 199 mg/dL 05/14/2015 1:26 PM CDT [facility] TRIGLYCERIDES 104 <150 mg/dL 05/14/2015 1:26 PM CDT [facility] HDL CHOLESTEROL 50 >40 mg/dL 05/14/2015 1:26 PM CDT [facility] NON-HDL CHOLESTEROL 121 <145 mg/dl 05/14/2015 1:26 PM CDT [facility] CHOL/HDL RATIO 3.42 <4.50 05/14/2015 1:26 PM CDT [facility] LDL CHOLESTEROL 100 <=130 mg/dL 05/14/2015 1:26 PM CDT [facility] PATIENT STATUS FASTING 05/14/2015 1:26 PM CDT [facility] Blood specimen (specimen) BLOOD SPECIMEN / Unknown Butterfly / Unknown 05/14/2015 11:47 AM CDT 05/14/2015 11:47 AM CDT Jt Varghese MD CHEMISTRY [facility] [address] [place] [address], * XR MAMMO BILAT SCREEN FFDM (05/14/2015 9:26 AM CDT) Anatomical Region Laterality Modality BREASTS, Breast Left, Breast Right Bilateral Mammography Impressions 05/14/2015 9:56 AM CDT ??There is no radiographic evidence for malignancy. ??Recommend annual mammograms. A lay language report of this examination will be provided to the patient. MAMMOGRAM ASSESSMENT: ??ACR 2 Benign Narrative 05/14/2015 9:56 AM CDT XR MAMMO BILAT SCREEN FFDM [G0202.0] CLINICAL HISTORY: ??This is an asymptomatic 50 y.o. patient. INDICATION FOR EXAM: Mammogram Screening. TECHNIQUE: CC & MLO views were obtained. ??This digital study was evaluated with the assistance of Computer-Aided Detection. COMPARISON FILMS: Yes 11/28/[address] [facility] DI[facility]NO[facility] IM[facility] FINDINGS: ??Mammographically, the breast tissue is almost entirely fat. ??No suspicious masses or microcalcifications. ??Benign appearing calcifications within both breasts. Jt Varghese MD MAMMO * DENTAL CLAIMS PROCESSOR THIN PREP PAP SCREEN IMAGED (11/21/2013 2:37 PM PAPETERIE TABLE ASSEMBLER) CYTOLOGY CYTOPATHOLOGY REPORT [facility] Status: Final Status ?[id number] CLINICAL INFORMATION Last Date of LMP ? :09/12/2013 Last Pap Date ?:04/17/2011 Last Pap Result ?:NIL ABN [place]/Bx Past 5 YRS :None Hormone Usage ?:None Menstrual Status ? :Irregular Periods [place]/Bx done today ? :No Additional Information :None given HPV Request ?:HPV if ASCUS SPECIMEN SOURCE ?:Cervical/vagina l ThinPrep Vial, screening SPECIMEN ADEQUACY ?:Satisfactory for evaluation Endocervical component ? present. INTERPRETATION/RES ULT Negative for intraepithelial lesion or malignancy (NIL) Cytology 1st Screener ??:cmm Signed by ?:cmm This specimen was screened by the FDA approved ThinPrep Imaging System and manually reviewed. NOTE: ??The Pap test is a screening technique, not a diagnostic procedure. ??It is used ??primarily to screen for squamous cancers and precursor lesions. ??Published studies have shown that it is subject to both false negative and false positive results. ??The pap test should not be used as the sole means to diagnose or exclude pre-malignant and malignant lesions. COLLECTED:11/21/13 ? ACCESSIONED: ??11/24/13 ?? SIGNED: ??11/28/13 [facility] PAP [place] CODE NIL [facility] Tissue specimen (specimen) (Cervical/Vagina l) 11/21/2013 2:37 PM PAPETERIE TABLE ASSEMBLER 11/21/2013 2:36 PM PAPETERIE TABLE ASSEMBLER Jt Varghese MD PATHOLOGY/CYTOLOGY [facility] [id number] [place] [address] from Last 3 Months or Most Recently Relevant to Health Maintenance Care Teams Circular Knitter Helper Relationship Specialty Start Date End Date Pcp, No . PCP - General 10/01/17
== END 2024-02-04 10:58 | disposition home or self-care (01) ==
PROVIDERS: PCP Family Medicine; Visit Provider Family Medicine
DX: Z13.228 Encounter for screening for other metabolic disorders (principal); Z13.0 Encounter for screening for diseases of the blood and blood-forming organs and certain disorders involving the immune mechanism
CPT/HCPCS: 80048; 85025

== ENCOUNTER 2024-02-07 09:43 | Outpatient (RCR) | payer OTHER, SELFPAY | END 2024-06-06 23:59 | disposition home or self-care (01) | PROVIDERS: PCP Family Medicine; Visit Provider Orthopaedic Surgery | DX: Z53.29 Procedure and treatment not carried out because of patient's decision for other reasons (principal) | CPT/HCPCS: 97161 ==

== ENCOUNTER 2024-02-12 10:53 | Day surgery (SDC) | payer OTHER, SELFPAY ==
[2024-02-12] VITALS (20 sets, daily range): BP systolic 88–171; BP diastolic 64–109; PULSE 58–657; RESP 12–18; TEMP 35.3–36.6; O2SAT 93–99; BMI 49.6
[2024-02-12] MEDS: LACTATED RINGERS 1000 ML 1,000 ML 100 ML IV ×2 (07:30→13:59)
--- OUTSIDE RECORDS SUMMARY | 2024-02-12 10:56 | XMS_ITS ---
Author Name Unknown Organization [facility] Address [address] [place] [address] Care Team Providers Care Tubing Machine Tender Name Role Phone Unavailable Unavailable Unavailable Surgery Details Not on file Complications Check Surgery Details section. Procedure Estimated Blood Loss Check Surgery Details section. Procedure Findings Check Surgery Details section. Procedure Specimens Taken Check Surgery Details section.
--- OUTSIDE RECORDS SUMMARY | 2024-02-12 10:56 | XMS_ITS | Clinical Summary ---
Author Name Unknown Organization [facility] Address [place], [place] [address] Care Team Providers Care Tea Blender Name Role Phone Pcp, No Primary Care [...] 05/14/2015 9:26 AM CDT Other screening mammogram INDUSTRIAL ENERGY ENGINEER THIN PREP PAP SCREEN IMAGED Routine 11/21/2013 2:37 PM CRYSTAL GAZER Screening for cervical cancer from Last 3 Months or Most Recently Relevant to Health Maintenance Results * COLONOSCOPY SCREENING (09/02/2015) Jt Varghese MD GI PROCEDURE ORD * ANTI HCV (05/14/2015 11:47 AM CDT) HEPATITIS C ANTIBODY Non-Reacti ve Non-Reacti ve 05/14/2015 7:55 PM CDT [facility] Blood specimen (specimen) BLOOD SPECIMEN / Unknown Butterfly / Unknown 05/14/2015 11:47 AM CDT 05/14/2015 11:47 AM CDT Narrative [facility] - 05/14/2015 7:55 PM CDT Antibodies to HCV not detected; does not exclude the possibility of exposure to HCV. Jt Varghese MD SEND OUTS [facility] [address] [place] [address], * LIPID PANEL (05/14/2015 11:47 AM CDT) CHOLESTEROL,TOTAL 171 100 - 199 mg/dL 05/14/2015 1:26 PM CDT [facility] TRIGLYCERIDES 104 <150 mg/dL 05/14/2015 1:26 PM CDT [facility] HDL CHOLESTEROL 50 >40 mg/dL 05/14/2015 1:26 PM CDT [facility] NON-HDL CHOLESTEROL 121 <145 mg/dl 05/14/2015 1:26 PM CDT [facility] CHOL/HDL RATIO 3.42 <4.50 05/14/2015 1:26 PM CDT [facility] LDL CHOLESTEROL 100 <=130 mg/dL 05/14/2015 1:26 PM CDT [facility] PATIENT STATUS FASTING 05/14/2015 1:26 PM CDT [facility] Blood specimen (specimen) BLOOD SPECIMEN / Unknown Butterfly / Unknown 05/14/2015 11:47 AM CDT 05/14/2015 11:47 AM CDT Jt Varghese MD CHEMISTRY [facility] [address] [place] [address], * XR MAMMO BILAT SCREEN FFDM (05/14/2015 [...] of Computer-Aided Detection. COMPARISON FILMS: Yes 11/28/13 [facility] DIAGNOSTIC IMAGING FINDINGS: ??Mammographically, the breast tissue is almost entirely fat. ??No suspicious masses or microcalcifications. ??Benign appearing calcifications within both breasts. Jt Varghese MD MAMMO * INDUSTRIAL ENERGY ENGINEER THIN PREP PAP SCREEN IMAGED (11/21/2013 2:37 PM CRYSTAL GAZER) CYTOLOGY CYTOPATHOLOGY REPORT [facility] Status: Final Status ?[id number] CLINICAL INFORMATION Last Date of LMP ? :09/12/2013 Last Pap Date ?:04/17/2011 Last Pap Result ?:NIL ABN Macfarlan/Bx Past 5 YRS :None Hormone Usage ?:None Menstrual Status ? :Irregular Periods Macfarlan/Bx done today ? :No Additional Information :None [...] COLLECTED:11/21/13 ? ACCESSIONED: ??11/24/13 ?? SIGNED: ??11/28/13 [facility] PAP BETHESDA CODE NIL [facility] Tissue specimen (specimen) (Cervical/Vagina l) 11/21/2013 2:37 PM CRYSTAL GAZER 11/21/2013 2:36 PM CRYSTAL GAZER Jt Varghese MD PATHOLOGY/CYTOLOGY [facility] [id number] [place] [address] from Last 3 Months or Most Recently Relevant to Health Maintenance Care Teams Tea Blender Relationship Specialty Start Date End Date Pcp, No . PCP - General 10/01/17
--- OUTSIDE RECORDS SUMMARY | 2024-02-12 10:56 | XMS_ITS | Data Portability ---
Author Name Unknown Address [address] [place] [address] Phone [phone] Organization [place] - [facility] Address [address] [facility] [place] [address] Assessment No assessment recorded. Plan of Treatment Reminders Order Date Submit Date Provider Last Modified By Organization Details Last Modified Time Details Appointments None recorded. Lab pap, LB + HR HPV 2021 022 [email or web address] Not available 2 14:50:33 Referral None recorded. Procedures biopsy, endometriu m (PROC) 2019 020 [email or web address] Not available 0 10:56:04 Surgeries None recorded. Imaging MAMMO, diagnostic , bilateral - small lump noted at the 1 o'clock position about 10cm from the right nipple. 2021 022 [email or web address] Not available 3 16:10:50 US, pelvis, complete 2019 020 [email or web address] Not available 0 10:58:05 Medication Orders None recorded. Patient TargetsNo targets recorded. Patient Instructions Encounter Date Encounter Id Patient Instructions Last Modified By Organization Details Last Modified Time 05/19/2020 [id number] vaginal bleeding after menopause: care instructions [email or web address] Not available 05/19/2020 20:14:47 Reason for Referral None Reported. Results Created Date Observation Date Name Description Value Unit Range Abnormal Flag LastModifiedBy Organization Detail LastModifiedTime 08/09/20 22 07/26/2022 MAMMO , diagn ostic , bilat eral No observ ation record ed. [email or web address] Not Available 08/20/2022 22:51:15 Result Notes None recorded. Problems No Known Problems Procedures Surgical History Date Name Laterality Status Provider Name and Address Organization Details Recorded Time 07/18/20 Date of Last Pap Smear completed SHARON JOSE VELAZQUEZ [address] [facility] [place], [address], [facility] 07/18/2022 17:14:29 tonsillectomy completed SHARON JOSE VELAZQUEZ [address] [place], [address], [facility] 07/18/2022 17:13:51 lumpectomy of right breast completed SHARON JOSE VELAZQUEZ [address] [facility] [place], [address], [facility] 07/18/2022 17:14:17 Imaging Results Imaging Date Name Status LastModified by Organiz ation Details LastModified Time 07/26/2022 MAMMO, diagnostic, bilateral completed einamagua Information not available 08/20/2022 22:51:15 Procedure Notes None recorded. Medical Equipment None Reported. Allergies No known drug allergies Medications Name Sig Start Date Stop Date Status Note LastModified by Organization Details LastModified Time Bactrim DS 800 mg-160 mg tablet take 1 tablet by oral route every 12 hours 020 2021 completed Not Available Not Available Not Available Vitals Date Recorded Body height Body mass index (BMI) Body weight Systolic blood pressure Diastolic blood pressure Provider Name and Address Organization Details Last Updated DateTime 07/18/2022 161.29 cm 46.3 kg/m2 456413.8 5 g 146 mm[Hg] 92 mm[Hg] Sujevon Castrowagner [facility] 15:12:51 Social History Question Answer Notes LastModified by Organizat ion Details LastModified Time Are You Currently Employed? Yes Information not available 07/18/2022 Who Is Your Employer? [employer] Information not available 07/18/2022 What Is Your Occupation? Nurse Information not available 07/18/2022 How Many Children Do You Have? 1 Information not available 07/18/2022 What Is Your Relationship Status? Single Information not available 07/18/2022 Sex: Female Functional Status None recorded. Mental Status None recorded. Family History Relationship Description Onset Age of this Age Resolved Age Notes Maternal Grandmother Diabetes mellitus Maternal Grandmother Acute stroke Maternal Grandmother Heart disease Paternal Grandmother Multiple malignancy 100 Maternal Grandfather Hypertensive disorder Mother Hypertensive disorder Father Diabetes mellitus Father Nonalcoholic steatohepatitis Medical History No medical history recorded. Gynecological History Statement/Question Response If Post Menopausal, Age at Menopause 52 Date of Last Pap Smear 07/18/2022 Current Control Method None Desired Control Method N/A Obstetrics History GPAL:G 1 P 0 0 0 0 Past Encounters Encounter ID Performer Location Encounter Start Date Encounter Closed Date Diagnosis/Indication Diagnosis SNOMED-CT Code [id number] Bethany Barnes MD [facility] [address] [place] [address] 05/19/2020 20:05:54 05/20/2020 11:55:15 Postmenopausal bleeding [id number] SHARON VELAZQUEZ CNP [place] [facility] [address] [facility] [address] [facility] [place] [address] 07/18/2022 16:12:37 07/18/2022 17:07:41 Active or passive immunization [id number] Gynecologi c examination 27007256 Mass of right breast 122 [id number] 106 Health Concerns Section Related Observation LastModified by Organization Detai ls LastModified Time None Recorded Concern Status LastModified by Organization Details LastModified Time None Recorded Advance Directives Directive None Recorded Payers Encounter Date Sequence Insurance Name Policy Number Policy Matthew Covered Member ID Matthew Member ID Guarantor Name 07/18/2022 SLIDING FEE SCHEDULE - DISCOUNT Izzy Kwan 05/19/2020 SLIDING FEE SCHEDULE - DISCOUNT Izzy Kwan Notes Date Note Type Note Provider Name and Address Organization Details Recorded Time 05/19/2020 text/html HPI Notes: 55yo F who about 2 weeks ago she had back pain that was very uncomfortable. it was low back pain that was keeping her up at night and then within the next few days she started to spot and then cleared into as if she was having a period. she has not had menstrual cycle before for past 2 years. Mother had endometrial cancer and then the pain resolved and bleeding stopped but still worrisome. not had preventative healthcare in years due to cost. Bethany Barnes MD [address] [place], [address], [facility] [employer] 05/19/2020 20:16:03 07/18/2022 text/html HPI Notes: 57 y/ o presents for pap smear. Last pap was about 5 years ago and was normal. Menopause at age 52. 2 years ago she had an episode of bleeding. Endometrial biopsy was normal and she has not had any bleeding since that time. Last mammogram was 5-10 years ago and was normal. About a month ago she noticed and lump in the right breast. No family history of breast cancer. Blood pressure is noted to be 146/92 today. She monitors this at work and it varies between being elevated and normal. SHARON VELAZQUEZ CNP [address] [place], [address], [facility] [employer] 07/18/2022 17:26:40 OBGyn Episode No OBEpisode recorded.
--- OUTSIDE RECORDS SUMMARY | 2024-02-12 10:56 | XMS_ITS | Referral Summary ---
Author Name Unknown Organization [facility] Address [address] [place] [address] Care Team Providers Care Tax Credit Leasing Consultant Name Role Phone Unavailable Primary Care Provider Unavailabl e Source Comments Patient records contain information from all sites at [facility]. For routine questions regarding patient records, call [phone] during business hours, M-F 8:00 AM - 5:00 PM Central Time. Record requests for emergency care only can be directed to [phone] at any time.[facility] Allergies No known active allergies Medications Medication [...] Garner Jr., M.D. LAB PAP PATHDX ORDERABLES [facility] [address] [place] [address], [place] [facility] [address] [place] [address] from Last 3 Months or Most Recently Relevant to Health Maintenance
--- OUTSIDE RECORDS SUMMARY | 2024-02-12 10:56 | XMS_ITS | Clinical Summary ---
Author Name Unknown Organization [facility] Address [address] [place] [address] Care Team Providers Care Fountain Attendant Name Role Phone Unavailable Primary Care Provider Unavailabl e Source Comments Patient records contain information from all sites at [facility]. For routine questions regarding patient records, call [phone] during business hours, M-F 8:00 AM - 5:00 PM Central Time. Record requests for emergency care only can be directed to [phone] at any time.[facility] Allergies No known active allergies Medications Medication [...] (06/01/2020 4:25 PM CDT) 06/04/2020 10:39 AM [facility] Report electronically signed by MERLE Thomas(ASCP) I verify that I have examined all relevant slides/materials for the specimen(s) and rendered or confirmed the diagnosis. 06/04/2020 10:39 AM CDT [facility] Gross Description Received specimen in a ThinPrep vial. 06/04/2020 10:39 AM CDT [facility] Pap Test Source Cervical/Endocervi sonu 06/04/2020 10:39 AM CDT [facility] Clinical History Post menopausal bleeding 06/04/2020 10:39 AM CDT [facility] Menstrual Status(LMP, PM, ) PM 06/04/2020 10:39 AM CDT [facility] Hormone Therapy/Contracep tives none 06/04/2020 10:39 AM [...] Garner Jr., M.D. LAB PAP PATHDX ORDERABLES [facility] [address] [place] [address], [facility] [address] [place] [address] from Last 3 Months or Most Recently Relevant to Health Maintenance [address] [place] [address]
[2024-02-12] MEDS: OXYCODONE (CR) 10 MG TAB.ER.12H PO (11:18)
[2024-02-12] MEDS: CELECOXIB 200 MG CAPSULE PO (11:18)
[2024-02-12] MEDS: ACETAMINOPHEN 500 MG TABLET 1000 MG PO ×2 (11:18→19:23)
[2024-02-12] MEDS: SODIUM CHLORIDE 0.9 % (FLUSH) 10 ML SYRINGE IVF (11:34)
[2024-02-12] MEDS: fentaNYL 100 MCG/2 ML inj IVP (12:06)
[2024-02-12] MEDS: MIDAZOLAM HCL 1 MG/ML inj IVP (12:06)
--- NOTE | 2024-02-12 12:08 | SUR.PREOP ---
TIME?OUT:?1205 PT/Dee Dee Guardado RN/Dr. Sree MDA?VERIFICATION?OF?SURGICAL?SITE right knee,?PROCEDURE,?AND?CONSENT OBTAINED?PRIOR?TO?INVASIVE?PROCEDURE.
--- NOTE | 2024-02-12 12:14 | P.NB_ITS ---
Nerve Block Nerve Block Time Seen by Provider: 12:10 Date Seen: 02/12/24 Type of block requested by surgeon for post-operative analgesia: geniculars Side: right Time out performed: Yes Verification of patient name: Yes Verification of date of : Yes Site marking: site marked Name of person performing procedure: Sree Continuous monitoring Was continuous monitoring of O2 sat, B/P, vehicle monitor technician, recorded every 15 minutes?: Yes Procedure Checklist: sterile prep, needles and gloves Medications given in 5ml increments after negative aspiration: Ropivicaine %: 0.5 mL: 9 Needle gauge: 25 Patient tolerated procedure well: Yes Block Charges Block Charge (with Pro Fee): Genicular Nerve Block Use of Ultrasound Machine for Block: No
--- NOTE | 2024-02-12 12:14 | P.NB_ITS ---
Nerve Block Nerve Block Time Seen by Provider: 12:10 Date Seen: 02/12/24 Type of block requested by surgeon for post-operative analgesia: adductor canal Side: right Time out performed: Yes Verification of patient name: Yes Verification of date of : Yes Site marking: site marked Name of person performing procedure: Sree Continuous monitoring Was continuous monitoring of O2 sat, B/P, conveyor monitor, recorded every 15 minutes?: Yes Procedure Checklist: sterile prep, needles and gloves Ultrasound guided. Images saved: Yes Medications given in 5ml increments after negative aspiration: Ropivicaine %: 0.5 mL: 20 Needle gauge: 20 Decadron (mg): 10 Precedex (mcg): 25 Patient tolerated procedure well: Yes Additional comments: Needle noted adjacent to nerve Block Charges Block Charge (with Pro Fee): Femoral Nerve Use of Ultrasound Machine for Block: Yes- US Guidance/pain block
--- NOTE | 2024-02-12 12:14 | W.ANESCHARGE ---
Anesthesia Charges Start Date/Time Anesthesia Start Date: 02/12/24 Anesthesia Start Time: 12:42 Stop Date/Time Anesthesia Stop Date: 02/12/24 Anesthesia Stop Time: 16:00
[2024-02-12] MEDS: CEFAZOLIN 2 GM INJ IVP (13:05)
[2024-02-12] MEDS: TRANEXAMIC ACID 100 MG/ML INJ 1000 MG IV (13:10)
--- NOTE | 2024-02-12 14:43 | P.IMCN_ITS ---
Date of Consult Consult date: 02/12/24 Primary Care Provider: Yury Post MD Consult Narrative Narrative: HOSPITALIST CONSULT NAME OF OPERATION: Right total knee arthroplasty SURGEON: Bonilla Morales MD VENEER CLIPPER HELPER: Ana Varner PA-C, May Hubbard PA-C ANESTHESIA: Spinal ESTIMATED BLOOD LOSS: 0 mL COMPLICATIONS: None The hospital medicine team was asked by the orthopedic surgery team to manage the patient's There have been no perioperative complications. Updated and reviewed the active medical problems, past medical history, past surgical history, social history, allergies and medications in our electronic EMR. PHYSICAL EXAM: CODE STATUS: FULL CODE CONSTITUTIONAL: Conversive, good historian. A/O. Knows setting and context. VITAL SIGNS: see record. HEENT: Normocephalic, atraumatic. PERRL, EOMI, conjunctivae pink, no scleral icterus. Ears and nose externally normal. Pharynx normal. NECK: No JVD. No carotid bruit, no thyromegaly, no adenopathy. CHEST: Clear to auscultation bilaterally HEART: S1 and S2 normal. ABDOMEN: Flat, soft, nontender. Normal bowel sounds. Moderately obese. EXTREMITIES: No edema. MUSCULOSKELETAL: SDI NEURO: Cranial nerves intact. Mentation normal. Normal affect. SKIN: No rashes, petechiae, concerning changes PSYCHIATRIC: Mentation normal. INVESTIGATIONS: EMR Reviewed; Pre-OP Reviewed DISPOSITION: DVT: Agree with Ortho team decision GI: PO intake [facility] Medical History (Updated 02/12/24 @ 15:20 by Brandi Daly MD) Morbid obesity with BMI of 45.0-49.9, adult ?E66.01 - Morbid (severe) obesity due to excess calories (ICD-10) ?Z68.42 - Body mass index [BMI] 45.0-49.9, adult (ICD-10) SLAC (scapholunate advanced collapse) wrist ?M19.139 - Post-traumatic osteoarthritis, unspecified wrist (ICD-10) Chronic neck and back pain ?M54.2 - Cervicalgia (ICD-10) ?M54.9 - Dorsalgia, unspecified (ICD-10) ?G89.29 - Other chronic pain (ICD-10) Bilateral carpal tunnel syndrome ?G56.03 - Carpal tunnel syndrome, bilateral upper limbs (ICD-10) Bilateral primary osteoarthritis of knee ?M17.0 - Bilateral primary osteoarthritis of knee (ICD-10) Chronic pain syndrome ?G89.4 - Chronic pain syndrome (ICD-10) Surgical History (Updated 02/12/24 @ 17:00 by Brandi Daly MD) Status post left knee replacement (01/23/23) ?Z96.652 - Presence of left artificial knee joint (ICD-10) History of lumpectomy of right breast ?Z98.890 - Other specified postprocedural states (ICD-10) Family History Father Diabetes AGUILA (nonalcoholic steatohepatitis) Mother High blood pressure Social History (Updated 01/28/24 @ 09:07 by Ina Courtney ~ [facility]) Narrative: , 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, non-smoker Smoking Status: Former smoker What tobacco products do you use: cigarettes Smoking quit date/years: >15 years ago Do you use any of these nicotine containing products: None Second hand tobacco smoke exposure: No How often do you have a drink containing alcohol: 2-3 times a week Alcohol type: hard liquor How many standard drinks containing alcohol do you have on a typical day: 5 or 6 How often do you have six or more drinks on one occasion: Weekly AUDIT-C Alcohol total score: 8 Non-prescribed substance use: marijuana (any form) Caffeine: Yes (2 coffee/day, Celsius, one a day) Little interest or pleasure in doing things: several days Feeling down, depressed, or hopeless: not at all service: No Meds Home Medications and Allergies Home Medications Medication Instructions Recorded Confirmed Type acetaminophen 500 mg capsule 1,000 mg PO Q6H PRN 12/26/22 02/12/24 History cholecalciferol (vitamin D3) 25 25 mcg PO BID 12/26/22 02/12/24 History mcg (1,000 unit) capsule diphenhydramine HCl 25 mg capsule 50 mg PO QHS PRN 12/26/22 02/12/24 History (Benadryl) Allergies Allergy/AdvReac Type Severity Reaction Status Date / Time No Known Drug Allergies Allergy Verified 02/12/24 11:02 Exam Const: Vital Signs, click to edit/add: Vital Signs - 24 hr 02/12/24 11:32 02/12/24 12:06 02/12/24 12:15 Temperature 97.3 F L Pulse Rate 73 71 73 Respiratory Rate 16 16 16 Blood Pressure 143/94 H 140/90 H 121/79 Pulse Oximetry 96 98 95 Oxygen Delivery Me thod Room Air Nasal Cannula Nasal Cannula Oxygen Flow Rate 2 2 Assessment and Plan Assessment and plan (1) Status post right knee replacement: Problem comment: 02/12/24 Dr. Morales -[facility] team is happy to follow thru to discharge. We will continue her Lyrica and expect a routine postoperative course. Status: Acute (2) Chronic pain syndrome: Problem comment: Lyrica scheduled Status: Acute (3) Chronic neck and back pain: Status: Acute (4) Morbid obesity with BMI of 45.0-49.9, adult: Status: Acute
--- NOTE | 2024-02-12 15:16 | XR_ITS ---
Patient: CHANDRA CASTILLO Facility:?[facility] Patient ID:?[id number] Site Patient ID:?[id number]. Site :?[id number] Study:?XRay-Knee Right 2V-02/12/2024 5:51:00 PM Ordering Physician:ABBE Final Report: INDICATION: Postop. TECHNIQUE: Two views of the right knee. FINDINGS: There is a right TKA. Components appear well seated. Adjacent postop soft tissue air. Dictated by Jeff Puente MD @ 02/13/2024 11:57:53 AM Signed by:?Jeff Puente MD @02/13/2024 11:57:53 AM (Electronic Signature)
--- NOTE | 2024-02-12 15:19 | P.ORPRC_ITS ---
Procedure Note Date of procedure: 02/12/24 Procedure: PREOPERATIVE DIAGNOSIS: Right knee osteoarthritis POSTOPERATIVE DIAGNOSIS: Right knee osteoarthritis NAME OF OPERATION: Right total knee arthroplasty SURGEON: Bonilla Morales MD AD OPERATIONS INTERN: Ana Varner PA-C, May Hubbard PA-C ANESTHESIA: Spinal ESTIMATED BLOOD LOSS: 0 mL COMPLICATIONS: None SPECIMENS: None DRAINS: None PREOPERATIVE ANTIBIOTICS: Ancef 3 grams, antibiotic impregnated cement IMPLANTS: 1. J&J Attune revision CRS # 8 posterior stabilized femur, with a 14 mm x 50 mm cemented stem 2. #6 rotating platform tibia, 29 mm sleeve, 14 mm x 60 mm ingrowth stem 3. # 8 posterior stabilized, 12 mm rotating platform polyethylene 4. 38 patella INDICATIONS: The patient is a 59-year-old with a longstanding history of severe, unrelenting right knee pain secondary to end-stage (grade IV) right knee osteoarthritis. Despite appropriate nonoperative management, including activity modification, anti-inflammatories, fqgb-bje-reblepd pain medication, bracing, physical therapy, and injections they continue to have pain and disability. Operative intervention was offered. The risks, benefits and expected outcomes were discussed in detail. These included but were not limited to: Infection, bleeding, injury to blood vessel or nerve, venous thromboembolism. All questions were answered to their satisfaction. Use of an assistant professor of sociology was necessary throughout the case for patient positioning and safety, soft tissue retraction, and closure. A modifier 22 should be added to this case. The patient's weight of 120 kg with a BMI of 50 made the exposure difficult. There was a significant amount of deformity and bone loss. This necessitated a 2nd assistant professor of sociology and stemmed components on both sides of the joint to reduce the risk of aseptic loosening. All of these factors added time and expense to complete the case. PROCEDURE: Spinal anesthesia was administered. The patient was placed supine on the operating table. The assistant professor of sociology made sure the patient was positioned appropriately. The lower extremity was prepped and draped in the usual sterile fashion. The limb was exsanguinated with the Jose bandage. The pneumatic tourniquet was inflated to 300 mmHg. A standard anterior incision was made with the knee in flexion. Subcutaneous dissection was sharply taken through fascial layer #1. Full-thickness medial and lateral flaps were elevated. The assistant professor of sociology retracted the soft tissues and protected them throughout the case. A standard subvastus approach was made. The patella was everted. The infrapatellar fat pad was preserved. The menisci and cruciate ligaments were sharply d?brided. Marginal osteophytes were d?brided with the rongeur. The drill was used to penetrate the femoral canal. The canal was aspirated and irrigated with pulse lavage. The intramedullary femoral guide was placed for a 5-degree valgus cut, removing 12 mm off the distal femur. The saw was used to make the cut. Whitesides line and the trans epicondylar axis were marked. The femoral sizing guide was pinned onto the distal femur. Three degrees of external rotation nicely parallels the transepicondylar axis. Pins were placed for posterior referencing. The four-in-one cutting guide was pinned onto the distal femur. The anterior, posterior, and chamfer cuts were made. The assistant professor of sociology protected the collateral ligaments. Trial Attention was then turned to the proximal tibia. The extramedullary tibial guide was placed for a neutral varus/valgus cut with 5 degrees of posterior slope, removing 1 mm based off the medial tibial surface. The assistant professor of sociology protected the collateral ligaments and the neurovascular bundle. The saw was used to make the cut. The drill was used to enter the tibial canal. We then reamed in 1 mm to 15 mm. The 29 mm broach was used. This was rotationally st able. The saw was used to cut 2 more mm of proximal tibia on top of the broach. Trial components were placed. The knee was nicely balanced in both flexion and extension. The trial tray was placed in appropriate rotation. The punch was used.. Attention was then turned to the patella. [place] patellar thickness was 22 mm. The lobster claw resection guide was used with the 7.5 mm fransico. The saw was used to make the cut. Drill holes were made by the assistant professor of sociology. The trial was placed and was an excellent fit. Cancellous surfaces were irrigated with pulse lavage and thoroughly dried by the assistant professor of sociology. We cemented the tibial component, then the femoral component. We placed the 10 mm trial polyethylene onto the tibial tray. The knee was brought into full extension. We then cemented the patellar component. Excessive cement was removed. The cement was allowed to harden. With a 10 mm poly the knee felt like it went into recurvatum. Therefore, we placed the 12 mm poly. The knee was reduced and was taken through a range of motion and was found to be nicely balanced in both flexion and extension. The patella tracks centrally. The assistant professor of sociology did a three minute dilute Betadine solution soak. The assistant professor of sociology irrigated the wound with 3 liters of normal saline via pulse lavage. The assistant professor of sociology reapproximated the extensor mechanism with #1 Vicryl in an interrupted xsikqc-va-wwifk fashion. The assistant professor of sociology then ran the extensor mechanism with a #1 PDO Stratafix. The assistant professor of sociology closed the subcutaneous tissues with a 3-0 Stratafix and the skin with a running 3-0 Stratafix in a subcuticular fashion. Glue was used to seal the skin. The assistant professor of sociology placed a dry dressing. Sponge and needle counts were correct x2. The patient tolerated the procedure well. There were no apparent complications. They were carefully transferred to the hospital bed and taken to the postanesthesia care unit in satisfactory condition. PLAN: The patient will be mobilized with physical therapy. Aspirin will be used for DVT prophylaxis. They will be discharged to home once medically appropriate.
[2024-02-12] MEDS: LACTATED RINGERS 1000 ML 1,000 ML 75 ML IV (16:00)
--- NOTE | 2024-02-12 17:05 | W.ANESCHARGE ---
Anesthesia Charges Start Date/Time Anesthesia Start Date: 02/12/24 Anesthesia Start Time: 12:42 Stop Date/Time Anesthesia Stop Date: 02/12/24 Anesthesia Stop Time: 16:00
--- NOTE | 2024-02-12 18:59 | PC.NURSE ---
[End of Shift Note]: Patient arrived to unit at 1630 post-operatively. Post-op vitals stable and pt has denied presence of pain. Sensation in RLE returning. Patient has not mobilized out of bed yet. Will continue to implement ongoing plan of care.
[2024-02-12] MEDS: OXYCODONE 5 MG TABLET PO ×2 (19:23→22:11)
[2024-02-12] MEDS: ASPIRIN 81 MG TABLET EC PO (22:12)
[2024-02-12] MEDS: PREGABALIN 75 MG CAPSULE 150 MG PO (22:14)
[2024-02-12] MEDS: SENNOSIDES 1 TAB TABLET 2 TAB PO (22:14)
[2024-02-12] MEDS: CEFAZOLIN 3 GM in 0.9 % SODIUM CHLORIDE Mini-bag 100 ML IVPB (22:15)
[2024-02-13] MEDS: OXYCODONE 5 MG TABLET PO ×3 (02:50→10:12)
[2024-02-13] MEDS: CEFAZOLIN 3 GM in 0.9 % SODIUM CHLORIDE Mini-bag 100 ML IVPB (05:47)
[2024-02-13] MEDS: ACETAMINOPHEN 500 MG TABLET 1000 MG PO (05:47)
[2024-02-13 06:26] LABS: Basophils Percent Auto 0.1 % (0.0-3.0); Hemoglobin* 13.3 gm/dL (12.0-16.0); Immature Granulocytes Pct Auto 0.1 %; Lymphocytes Percent Auto 8.1 % (20-44); Mean Corpuscular HGB Conc 33 gm/dL (32-36); Mean Corpuscular Hemoglobin 31 pg (26-34); Mean Corpuscular Volume 92 fL (80-100); Monocytes Percent Auto 5.2 % (0.0-11.0); Neutrophils Percent Auto 86.5 % (42.0-72.0); Platelet Count* 326 K/uL (140-440); RDW Coefficient of Variation % 12.4 % (11.5-15.5); Red Blood Count 4.36 m/uL (4.00-5.20)
[2024-02-13 06:33] LABS: Slide Review Reflex No
[2024-02-13 06:36] LABS: INR 1.01 (0.91-1.10); Prothrombin Time 13.9 Seconds
[2024-02-13 06:40] LABS: Sodium* 139 mmol/L (135-149)
[2024-02-13 06:41] LABS: Potassium* 4.5 mmol/L (3.6-5.1)
[2024-02-13 06:43] LABS: Creatinine* 0.6 mg/dL (0.5-1.5); Est. Creatinine Clearance* 75.24; Estimated Glomerular Filt Rate 103 ml/min
[2024-02-13 06:44] LABS: Blood Urea Nitrogen* 14 mg/dL (7-30)
[2024-02-13 07:55] VITALS: BP 150/94; PULSE 87; RESP 18; TEMP 36.4; O2SAT 98
--- NOTE | 2024-02-13 08:01 | PC.NURSE ---
Pt pleasnat and cooperative. Up assist of 1 and walker. Pain controlled with oxy and tylenol. Drsg CDI. Ice pack on as needed. Voiding well. Tolerating diet.
--- NOTE | 2024-02-13 08:12 | PM.ORPN ---
Subjective Subjective Time Seen by Provider: 08:12 Date Seen: 02/13/24 Principal diagnosis: Post right knee replacement Interval history: Izzy is doing well. Pain is 6/10. She did not sleep well. She normally works nights. She will discharge to home today. Ortho Exam Narrative Exam Narrative: Alert and oriented x3. Patient is in no acute distress. Converses without labored breathing. Hearing is grossly intact. Ambulates with a Walker. Examination of the right knee shows dressing is intact. No erythema or warmth or sign of infection. Subcu bleeding collection is mild to moderate. CMS intact right lower extremity. Quad strength 5/5. Calf is soft and nontender. Const Vital Signs, click to edit/add: Vital Signs - 24 hr 02/12/24 11:32 02/12/24 12:06 02/12/24 12:15 Temperature 97.3 F L Pulse Rate 73 71 73 Pulse Rate [Pulse Oximeter] Respiratory Rate 16 16 16 Blood Pressure 143/94 H 140/90 H 121/79 Blood Pressure [Right Arm] Pulse Oximetry 96 98 95 Oxygen Delivery Method Room Air Nasal Cannula Nasal Cannula Oxygen Flow Rate 2 2 02/12/24 15:55 02/12/24 16:00 02/12/24 16:05 Temperature 97.1 F L Pulse Rate 65 66 60 Pulse Rate [Pulse Oximeter] Respiratory Rate 16 14 14 Blood Pressure 98/66 88/66 L 88/75 L Blood Pressure [Right Arm] Pulse Oximetry 95 93 95 Oxygen Delivery Method Room Air Room Air Room Air Oxygen Flow Rate 02/12/24 16:10 02/12/24 16:15 02/12/24 16:20 Temperature Pulse Rate 64 65 60 Pulse Rate [Pulse Oximeter] Respiratory Rate 12 14 14 Blood Pressure 107/74 110/75 106/78 Blood Pressure [Right Arm] Pulse Oximetry 95 94 96 Oxygen Delivery Method Room Air Room Air Room Air Oxygen Flow Rate 02/12/24 16:25 02/12/24 16:30 02/12/24 16:45 Temperature 95.7 F L 95.6 F L Pulse Rate 64 67 60 Pulse Rate [Pulse Oximeter] Respiratory Rate 12 16 16 Blood Pressure 101/77 111/87 98/64 Blood Pressure [Right Arm] Pulse Oximetry 95 98 98 Oxygen Delivery Method Room Air Room Air Room Air Oxygen Flow Rate 02/12/24 17:00 02/12/24 17:15 02/12/24 18:00 Temperature 95.5 F L 95.5 F L 95.5 F L Pulse Rate 58 L 65 65 Pulse Rate [Pulse Oximeter] Respiratory Rate 16 16 16 Blood Pressure 97/83 128/88 128/88 Blood Pressure [Right Arm] Pulse Oximetry 99 95 95 Oxygen Delivery Method Room Air Room Air Room Air Oxygen Flow Rate 02/12/24 18:30 02/12/24 20:10 02/12/24 21:00 Temperature 96.9 F L 97 F L 97.2 F L Pulse Rate 657 H 95 83 Pulse Rate [Pulse Oximeter] Respiratory Rate 16 18 18 Blood Pressure 141/97 H 153/109 H 150/99 H Blood Pressure [Right Arm] Pulse Oximetry 97 95 Oxygen Delivery Method Room Air Room Air Room Air Oxygen Flow Rate 02/12/24 22:00 02/12/24 23:00 02/12/24 23:00 Temperature 97 F L 97.8 F Pulse Rate 81 Pulse Rate [Pulse Oximeter] 83 Respiratory Rate 18 18 Blood Pressure 154/102 H Blood Pressure [Right Arm] 171/98 H Pulse Oximetry 97 97 Oxygen Delivery Method Room Air Room Air Room Air Oxygen Flow Rate Assessment and Plan Assessment and plan (1) Status post right knee replacement: Problem details: 02/12/24 Dr. Morales Status: Acute Assessment and Plan: Plan for discharge is today to home if they meet discharge criteria. DVT prophylaxis includes aspirin 81 mg twice daily x1 month, Compression stockings as needed for swelling. Frequent ambulation, every hour throughout the day. Remove dressing in 1 week. Observe wound and phone Orthopedics with any questions or concerns Return to clinic in 1 week for a wound check Return to clinic in 6 weeks with surgeon Minimize narcotic use. Wean off and discontinue soon as possible. Activities as tolerated. No strenuous activity. Outpatient physical therapy as scheduled. Ice and elevate the operative extremity. No restriction on ice.
[2024-02-13] MEDS: ASPIRIN 81 MG TABLET EC PO (09:30)
[2024-02-13] MEDS: PREGABALIN 75 MG CAPSULE 150 MG PO (09:30)
[2024-02-13] MEDS: SENNOSIDES 1 TAB TABLET 2 TAB PO (09:30)
--- NOTE | 2024-02-13 11:28 | PC.NURSE ---
Patient discharged home self care with spouse after R) knee replacement. Pt ambulating independently at discharge. Dressing C/D/I. Vitals stable at discharge. Education reviewed with patient; patient denies questions or concerns. Patient stable and asymptomatic at DC from facility.
== END 2024-02-13 11:25 | disposition home or self-care (01) ==
LOC: OR 10:54 → MEDSURG 10:56
PROVIDERS: PCP Family Medicine; Visit Provider Orthopaedic Surgery
PROC: (CPT 27447; principal; 2024-02-12 11:45)
DX: M17.11 Unilateral primary osteoarthritis, right knee (principal); G89.18 Other acute postprocedural pain; Z68.43 Body mass index [BMI] 50.0-59.9, adult; E66.01 Morbid (severe) obesity due to excess calories; G89.29 Other chronic pain; M54.2 Cervicalgia; M54.9 Dorsalgia, unspecified
CPT/HCPCS: 27447; 01400; 01402; 36415; 64447; 64454; 73560; 76942; 82565; 84132; 84295; 84520; 85025; 85610; 97110; 97161; 97165; A9270; C1776; J0690; J1100; J2250; J2371; J2405; J2704; J2795; J3010; J3490; J7120

== ENCOUNTER 2024-04-29 15:11 | Outpatient (CLI) | payer OTHER, SELFPAY ==
--- OUTSIDE RECORDS SUMMARY | 2024-04-29 15:14 | XMS_ITS | Data Portability ---
Author Organization [place] [facility] Address [address] [place] [address] [place] [address] Assessment No assessment recorded. Plan of Treatment Reminders Order Date Submit Date Provider Last Modified By Organization Details Last Modified Time Details Appointments None recorded. Lab pap, LB + HR HPV 2021 022 [email or web address] Not available 14:50:33 Referral None recorded. Procedures biopsy, endometriu m (PROC) 2019 020 [email or web address] Not available 0 10:56:04 Surgeries None recorded. Imaging US, pelvis, complete 2019 020 [email or web address] Not available 0 10:58:05 MAMMO, diagnostic , bilateral - small lump noted at the 1 o'clock position about 10cm from the right nipple. 2021 022 [email or web address] Not available 3 16:10:50 Medication Orders None recorded. Patient TargetsNo targets recorded. Patient Instructions Encounter Date Encounter Id Patient Instructions Last Modified By Organization Details Last Modified Time 05/19/2020 [id number] vaginal bleeding after menopause: care instructions ssachak [...] Date of Last Pap Smear completed SHARON VELAZQUEZJOSE [address] [place], [address], [facility] 07/18/2022 17:14:29 tonsillectomy completed SHARON VELAZQUEZ JOSE [address] [facility] [place], [address], [facility] 07/18/2022 17:13:51 lumpectomy of right breast completed SHARON VELAZQUEZ BENEFITS COUNSELOR [address] [facility] [place], [address], [facility] 07/18/2022 17:14:17 Imaging Results Imaging [...] Updated DateTime 07/18/2022 161.29 cm 46.3 kg/m2 625693.8 5 g 146 mm[Hg] 92 mm[Hg] Su Broussard [facility] 15:12:51 Social History Question Answer Notes LastModified by Organizat ion Details LastModified Time Are You Currently Employed? 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 Nurse Information not available 07/18/2022 How Many Children Do You Have? 1 Information not available 07/18/2022 What Is Your Relationship Status? Single Information not available 07/18/2022 Sex: Unknown Functional Status None recorded. Mental Status None [...] Encounter Closed Date Diagnosis/Indication Diagnosis SNOMED-CT Code [id number] Bethany Barnes MD [place] [facility] [address] [facility] [place] [address] 05/19/2020 20:05:54 05/20/2020 11:55:15 Postmenopausal bleeding [id number] SHARON VELAZQUEZ CNP [place] [facility] [address] [facility] [address] [facility] [place] [place] [address] 07/18/2022 16:12:37 07/18/2022 17:07:41 Active or passive immunization [id number] Gynecologi c examination [id number] Mass of right breast 122 [id number] 106 Health Concerns Section Related Observation LastModified by Organization Detai ls LastModified Time None Recorded Concern Status LastModified by Organization Details LastModified Time None Recorded Advance Directives Directive None Recorded Payers Encounter Date Sequence Insurance Name Policy Number Policy Matthew Covered Member ID Matthew Member ID Guarantor Name 05/19/2020 SLIDING FEE SCHEDULE - DISCOUNT Izzy Kwan 07/18/2022 SLIDING FEE SCHEDULE - DISCOUNT Izzy [...] years due to cost. Bethany Barnes MD [address] [facility] [place], [address], [facility] [employer] 05/19/2020 20:16:03 07/18/2022 text/html HPI Notes: 57 [...] varies between being elevated and normal. SHARON VELAZQUEZ, BENEFITS COUNSELOR [address] [facility], [place], [address], [facility] [employer] 07/18/2022 17:26:40 OBGyn Episode No OBEpisode recorded.
--- OUTSIDE RECORDS SUMMARY | 2024-04-29 15:14 | XMS_ITS | Referral Summary ---
Author Organization [facility] Address [address] [place] [address] Care Team Providers Care Dining Room Supervisor Name Role Phone Unavailable Primary Care Provider Unavailabl e Source Comments Patient records contain information from all sites at [facility]. For routine questions regarding patient records, call [phone] during business hours, M-F 8:00 AM - 5:00 PM Central Time. Record requests for emergency care only can be directed to [phone] at any time.[facility] Allergies No known active allergies Medications Medication [...] PM CDT Menstrual Irregularity Preventive Gynecological Exam from Last 3 Months or Most Recently [...] ASSESSMENT: BI-RADS: 2: Benign. Maciej Morgan M.D. G BI PROCEDURES * ThinPrep w/HPV Co-Test Screen (06/01/2020 4:25 PM CDT) 06/04/2020 10:39 AM CDT [facility] Report electronically signed by MERLE Thomas([facility]) I verify that I have examined all [...] Garner Jr., M.D. LAB PAP PATHDX ORDERABLES [facility] [address] [place] [address], [facility] HKCY [facility] [address] [place] [address] from Last 3 Months or Most Recently Relevant to Health Maintenance [address] [place] [address]
--- OUTSIDE RECORDS SUMMARY | 2024-04-29 15:14 | XMS_ITS ---
Author Organization [facility] Address [address] [place] [address] Care Team Providers Care Heavy Forger Helper Name Role Phone Unavailable Unavailable Unavailable Surgery Details Not on file Complications Check Surgery Details section. Procedure Estimated Blood Loss Check Surgery Details section. Procedure Findings Check Surgery Details section. Procedure Specimens Taken Check Surgery Details section.
--- OUTSIDE RECORDS SUMMARY | 2024-04-29 15:14 | XMS_ITS | Clinical Summary ---
Author Organization [facility] [place], [place] [address] Care Team Providers Care Remnant Sorter Name Role Phone Pcp, No Primary Care [...] booster 04/17/2021 04/17/2011, 04/17/2011 COVID-19 vaccine series ( season) 2023 Influenza for age 50-64 05/25/2024 [...] 05/14/2015 9:26 AM CDT Other screening mammogram CLIENT DEVELOPMENT CONSULTANT THIN PREP PAP SCREEN IMAGED Routine 11/21/2013 2:37 PM [employer] CR[employer] HEAD Screening for cervical cancer from Last 3 Months or Most Recently Relevant to Health Maintenance Results * COLONOSCOPY SCREENING (09/02/2015) Jt Varghese MD GI PROCEDURE ORD * ANTI HCV (05/14/2015 11:47 AM CDT) HEPATITIS C ANTIBODY Non-Reacti ve Non-Reacti ve 05/14/2015 7:55 PM CDT [facility] Blood specimen (specimen) BLOOD SPECIMEN / Unknown Butterfly / Unknown 05/14/2015 11:47 AM CDT 05/14/2015 11:47 AM CDT Narrative [facility] - 05/14/2015 7:55 PM CDT Antibodies to HCV not detected; does not exclude the possibility of exposure to HCV. Jt Varghese MD SEND OUTS [facility] [address] [place] [address], * LIPID PANEL (05/14/2015 11:47 AM CDT) CHOLESTEROL,TOTAL 171 100 - 199 mg/dL 05/14/2015 1:26 PM CDT [facility] TRIGLYCERIDES 104 <150 mg/dL 05/14/2015 1:26 PM CDT [facility] HDL CHOLESTEROL 50 >40 mg/dL 05/14/2015 1:26 PM CDT [facility] NON-HDL CHOLESTEROL 121 <145 mg/dl 05/14/2015 1:26 PM CDT [facility] CHOL/HDL RATIO 3.42 <4.50 05/14/2015 1:26 PM CDT [facility] LDL CHOLESTEROL 100 <=130 mg/dL 05/14/2015 1:26 PM CDT [facility] PATIENT STATUS FASTING 05/14/2015 1:26 PM CDT [facility] Blood specimen (specimen) BLOOD SPECIMEN / Unknown Butterfly / Unknown 05/14/2015 11:47 AM CDT 05/14/2015 11:47 AM CDT Jt Varghese MD CHEMISTRY [facility] [address] [place] [address], * XR MAMMO BILAT SCREEN FFDM (05/14/2015 [...] of Computer-Aided Detection. COMPARISON FILMS: Yes 11/28/13 [facility] DIAGNOSTIC IMAGING FINDINGS: ??Mammographically, the breast tissue is almost entirely fat. ??No suspicious masses or microcalcifications. ??Benign appearing calcifications within both breasts. Jt Varghese MD MAMMO * CLIENT DEVELOPMENT CONSULTANT THIN PREP PAP SCREEN IMAGED (11/21/2013 2:37 PM COMMERCIAL CREDIT HEAD) CYTOLOGY CYTOPATHOLOGY REPORT [facility] Status: Final Status ?[id number] CLINICAL INFORMATION Last Date of LMP ? :09/12/2013 Last Pap Date ?:04/17/2011 Last Pap Result ?:NIL ABN [place]/Bx Past 5 YRS :None Hormone Usage ?:None Menstrual Status ? :Irregular Periods [place]/Bx done today ? :No Additional Information :None [...] COLLECTED:11/21/13 ? ACCESSIONED: ??11/24/13 ?? SIGNED: ??11/28/13 [facility] PAP [place] CODE NIL [facility] Tissue specimen (specimen) (Cervical/Vagina l) 11/21/2013 2:37 PM COMMERCIAL CREDIT HEAD 11/21/2013 2:36 PM COMMERCIAL CREDIT HEAD Jt Varghese MD PATHOLOGY/CYTOLOGY [facility] INTERNAL ZIP [address] [place], [place] [id number] from Last 3 Months or Most Recently Relevant to Health Maintenance Care Teams Remnant Sorter Relationship Specialty Start Date End Date Pcp, No . PCP - General 10/01/17
--- OUTSIDE RECORDS SUMMARY | 2024-04-29 15:14 | XMS_ITS | Clinical Summary ---
Author Organization [facility] Address [address] [place] [address] Care Team Providers Care Edge Molder Name Role Phone Unavailable Primary Care Provider Unavailabl e Source Comments Patient records contain information from all sites at [facility]. For routine questions regarding patient records, call [phone] during business hours, M-F 8:00 AM - 5:00 PM Central Time. Record requests for emergency care only can be directed to [phone] at any time.[facility] Allergies No known active allergies Medications Medication [...] - 2022-2 4 season) 2023 05/31/2021, 05/09/2021 Mammogram 07/26/2023 07/26/2022, 0809/2014, 11/28/2013, Additional history exists Depression Screening (Annual PHQ-2) 09/24/2023 Influenza Vaccine (#1) 2024 6, 07/09/2016, 07/17/2015, Additional history exists Cervical Cancer Screening 06/01/2025 06/01/2020, 04/2020 DTaP,Tdap,and [...] 4:25 PM CDT) 06/04/2020 10:39 AM CDT [facility] Report electronically signed by MERLE Thomas(ASCP) I [...] 66, and 68. 06/04/2020 10:39 AM CDT HK Varies (Cervix/Endocerv ix) 06/01/2020 4:25 PM CDT 06/02/2020 7:16 AM CDT Devon Garner Jr., M.D. LAB PAP PATHDX ORDERABLES [facility] [address] [place] [address], [place] [facility] [address] [place] [address] from Last 3 Months or Most Recently Relevant to Health Maintenance [address] [place] [address]
--- NOTE | 2024-04-29 15:20 | CRLHL7_ITS ---
For Patients: As a result of the Century Cures Act, medical imaging exams and procedure reports are released immediately into your electronic medical record. You may view this report before your referring provider. If you have questions, please contact your health care provider. BILATERAL SCREENING MAMMOGRAM WITH COMPUTER-AIDED DETECTION AND TOMOSYNTHESIS TECHNIQUE: CC and MLO views were obtained. These mammographic images have been obtained using full-field digital technique. These mammographic images were interpreted with the benefit of computer-aided detection. Breast Tomosynthesis was used in this interpretation. COMPARISON FILM: 07/26/22, 05/14/15. FINDINGS: The breasts are almost entirely fatty IMPRESSION: There is no radiographic evidence for malignancy. ASSESSMENT: BI-RADS Category 2: Benign RECOMMENDATION: Routine screening mammogram in 1 year. A lay language report of this examination will be provided to the patient. Yury Pastrana M.D. Diagnostic Radiologist [email or web address] TERRI/Dictated by: Yury Pastrana MD @ 05/01/2024 10:16:00 AM (Electronically Signed)
== END 2024-04-29 15:12 | disposition home or self-care (01) ==
LOC: MAMMO 15:12
PROVIDERS: PCP Family Medicine; Visit Provider Family Medicine
DX: Z12.31 Encounter for screening mammogram for malignant neoplasm of breast (principal)
CPT/HCPCS: 77063; 77067

== ENCOUNTER 2025-03-12 13:56 | Outpatient (CLI) | payer OTHER, SELFPAY ==
[2025-03-12 22:06] LABS: Strep A DNA Probe* NOT DETECTED (Not Detectd)
--- OUTSIDE RECORDS SUMMARY | 2025-03-13 00:36 | XMS_ITS | Clinical Summary ---
Author Organization [facility] Address [address] [place] [id number] Care Team Providers Care Air Support Operations Operator Name Role Phone Pcp, No Primary Care Provider Unavailabl e Allergies No known active allergies Medications omega-3 fatty acids-vitamin E (FISH OIL) 1,000 mg capIndications:H ealth maintenance examination Take by mouth. 0 11/21/2013 Active b complex vitamins (VITAMIN B COMPLEX) capsuleIndicatio ns:Health maintenance examination Take 1 capsule by mouth once daily. 0 11/21/2013 Active multivitamin capsuleIndicatio ns:Health maintenance examination Take 1 capsule by mouth once daily. 0 11/21/2013 Active bisacodyl (DULCOLAX, BISACODYL,) 5 mg tabletIndication s:Abdominal pain, LUQ (left upper quadrant) Take 1 tablet by mouth once daily if needed for Constipation . 12 tablet 1 02/02/2017 Active gabapentin (NEURONTIN) 600 mg tabletIndication s:Leg pain, anterior, unspecified laterality TAKE ONE TABLET BY MOUTH THREE TIMES DAILY 270 tablet 1 06/10/2017 Active QUEtiapine (SEROQUEL) 25 mg tabletIndication s:Rumination TAKE ONE TABLET BY MOUTH ONCE DAILY AT BEDTIME 90 tablet 1 06/26/2017 Active oxyCODONE (ROXICODONE) 5 mg immediate release tabletIndication s:Chronic pain of both knees Take 1 tablet by mouth every 6 hours if needed for Pain 90 tablet 09/13/2017 Active ibuprofen (ADVIL; MOTRIN) 600 mg tabletIndication s:Acute left-sided low back pain without sciatica Take 1 Tablet (600 mg) by mouth every 6 hours if needed for Pain. Maximum of 3200 mg in 24 hours. 30 Tablet 04/22/2021 Active cyclobenzaprine (FLEXERIL) 10 mg tabletIndication s:Acute left-sided low back pain without sciatica Take 1 Tablet (10 mg) by mouth 3 times daily if needed for Muscle Spasm. 15 Tablet 04/22/2021 Active Active Problems Problem Noted Date Diagnosed Date Pain medication agreement 06/23/2016 Degenerative arthritis 09/07/2014 Bilateral chronic knee pain 09/07/2014 Resolved Problems Problem Noted Date Diagnosed Date Resolved Date DIABETES TYPE II WITHOUT COM PLICATIONS OR UNSPECIFIED 10/15/2003 04/17/2011 Overview (04/17/2011): Patient has never been diagnosed as diabetic Immunizations Immunization Administration Dates Next Due AMB Influenza, IIV4 [...] = 0.6 oz pur e alcohol) social Comments No Sex and Gender Information Value Date Recorded Sex Assigned at Not on file Legal Sex Female 6:59 AM DATA RECOVERY PLANNER Gender Identity Not on file Sexual Orientation Not on file Obstetrics History Last Filed Vital Signs Vital Sign Reading Time Taken Comments Blood Pressure 170/126 04/22/2021 9:03 PM CDT Pulse 70 04/22/2021 9:03 PM CDT Temperature 36.8 C (98.3 F) 04/22/2021 8:22 PM CDT Respiratory Rate 18 04/22/2021 7:42 PM CDT Oxygen Saturation 97% 04/22/2021 9:03 PM CDT Inhaled Oxygen Concentration - - Weight 119.5 kg (263 lb 7.2 oz) 04/22/2021 7:41 PM CDT Height 161.9 cm (5' 3.75) 04/22/2021 7:41 PM CD T Body Mass Index 45.58 04/22/2021 7:41 PM CDT Plan of Treatment Health Maintenance Due Date Last Done Comments HIV for age 15-65 01/26/1979 Pneumococcal series for age 50+ (1 of 1 - PCV) 01/26/2014 Zoster (shingles) series for age 50+ (1 of 2) 01/26/2014 Hepatitis B series for 19+ ( 2 of 3 - 19+ 3-dose series) 06/11/2015 05/14/2015 Mammogram for age 45-75 05/14/2016 05/14/20 15, 11/28/2013, 04/02/2012, Additional history exists Depression screening for age 12+ 10/08/2016 10/08/19 16 Pap test for age 21-65 11/21/2016 4, 11/21/2013, 04/17/2011, Additional history exists BMI (ht and wt on same day) for age 18+ 02/02/2018 02/02/2017, 06/23/2016, 10/08/2015 Lipids for age 45-75 05/14/2020 05/14/2015, 11/21/2013, 01/15/2008, Additional history exists Tetanus booster 04/17/2021 04/17/2011, 04/17/2011 COVID-19 vaccine series ( - 2023- season) 2024 Influenza Vaccine (Season Ended) 2025 07/14/20 16, 06/02/2014 Colonoscopy through age 75 09/02/2025 09/02/2015, RSV vaccine for adults or (1 - 1-dose 75+ series) 01/26/2039 Tdap Completed 04/17/2011 Hepatitis C screening for ag e 18-79 Completed 05/14/2015, 05/14/2015 Goals Goal Patient Goal Type Associated Problems [...] 05/14/2015 9:26 AM CDT Other screening mammogram [facility] THIN PREP PAP SCREEN IMAGED Routine 11/21/2013 2:37 PM DATA RECOVERY PLANNER Screening for cervical cancer from Last 3 Months or Most Recently Relevant to Health Maintenance Results * COLONOSCOPY SCREENING (09/02/2015) Jt Varghese MD GI PROCEDURE ORD Final Result * ANTI HCV (05/14/2015 11:47 AM CDT) HEPATITIS C ANTIBODY Non-Reacti ve Non-Reacti ve 05/14/2015 7:55 PM CDT [facility] Blood specimen (specimen) BLOOD SPECIMEN / Unknown Butterfly / Unknown 05/14/2015 11:47 AM CDT 05/14/2015 11:47 AM CDT Narrative [facility] - 05/14/2015 7:55 PM CDT Antibodies to HCV not detected; does not exclude the possibility of exposure to HCV. us Jt Varghese MD SEND OUTS Final Result [facility] [address] [place] [address], [place] * LIPID PANEL (05/14/2015 11:47 AM CDT) CHOLESTEROL,TOTAL 171 100 - 199 mg/dL 05/14/2015 1:[address] [facility] TRIGLYCERIDES 104 <150 mg/dL 05/14/2015 1:[address] [facility] HDL CHOLESTEROL 50 >40 mg/dL 05/14/2015 1:[address] [facility] NON-HDL CHOLESTEROL 121 <145 mg/dl 05/14/2015 1:[address] [facility] CHOL/HDL RATIO 3.42 <4.50 05/14/2015 1:[address] [facility] LDL CHOLESTEROL 100 <=130 mg/dL 05/14/2015 1:[address] [facility] PATIENT STATUS FASTING 05/14/2015 1:[address] [facility] Blood specimen (specimen) BLOOD SPECIMEN / Unknown Butterfly / Unknown 05/14/2015 11:47 AM CDT 05/14/2015 11:47 AM CDT us Jt Varghese MD CHEMISTRY Final Result Performing Organization Address [facility]/State/[facility] Co de Phone Number [facility] [address] [place] [address], * XR MAMMO BILAT SCREEN FFDM (05/14/2015 9:26 AM CDT) Anatomical Region Laterality Modality BREASTS, Breast Left, Breast Right Bilateral Mammography Impressions 05/14/2015 9:56 AM CDT There is no radiographic evidence for malignancy. Recommend annual mammograms. A lay language report of this examination will be provided to the patient. MAMMOGRAM ASSESSMENT: ACR 2 Benign Narrative 05/14/2015 9:56 AM CDT XR MAMMO BILAT SCREEN FFDM [G0202.0] CLINICAL HISTORY: This is an asymptomatic 50 y.o. patient. INDICATION FOR EXAM: Mammogram Screening. TECHNIQUE: CC & MLO views were obtained. This digital study was evaluated with the assistance of Computer-Aided Detection. COMPARISON FILMS: Yes 11/28/13 [facility] FINDINGS: Mammographically, the breast tissue is almost entirely fat. No suspicious masses or microcalcifications. Benign appearing calcifications within both breasts. Jt Varghese MD MAMMO Final Result * [facility] THREAD WINDER THIN PREP PAP SCREEN IMAGED (11/21/2013 2:37 PM DATA RECOVERY PLANNER) CYTOLOGY CYTOPATHOLOGY REPORT [facility] Status: Final Status [id number] CLINICAL INFORMATION Last Date of LMP :09/12/2013 Last Pap Date :04/17/2011 Last Pap Result :NIL ABN [place]/Bx Past 5 YRS :None Hormone Usage :None Menstrual Status :Irregular Periods [place]/Bx done today :No Additional Information :None given HPV Request :HPV if ASCUS SPECIMEN SOURCE :Cervical/vaginal ThinPrep Vial, screening SPECIMEN ADEQUACY :Satisfactory for evaluation Endocervical component present. INTERPRETATION/RES ULT Negative for intraepithelial lesion or malignancy (NIL) Cytology 1st Screener :[facility] Signed by :[facility] This specimen was screened by the FDA approved ThinPrep Imaging System and manually reviewed. NOTE: The Pap test is a screening technique, not a diagnostic procedure. It is used primarily to screen for squamous cancers and precursor lesions. Published studies have shown that it is subject to both false negative and false positive results. The pap test should not be used as the sole means to diagnose or exclude pre-malignant and malignant lesions. COLLECTED:11/21/13 ACCESSIONED: 11/24/13 SIGNED: 11/28/13 [facility] P[facility] [place] CODE NIL [facility] Tissue specimen (specimen) (Cervical/Vagina l) 11/21/2013 2:37 PM DATA RECOVERY PLANNER 11/21/2013 2:36 PM DATA RECOVERY PLANNER us Jt Varghese MD PATHOLOGY/CYTOLOGY Final Resul t [facility] INTERNAL ZIP [id number] [place] [id number] from Last 3 Months or Most Recently Relevant to Health Maintenance Care Teams Air Support Operations Operator Relationship Specialty Start Date End Date Pcp, No . PCP - General 10/01/17
== END 2025-03-12 13:57 | disposition home or self-care (01) ==
LOC: KYNREF 13:57
PROVIDERS: PCP Family Medicine; Visit Provider Nurse Practitioner Family
DX: J02.9 Acute pharyngitis, unspecified (principal)
CPT/HCPCS: 87651